=== PATIENT | female | born 1960 | race Caucasian/White ===

== ENCOUNTER → 2016-05-22 | Outpatient (CLI) | payer OTHER ==
[~2016-05-22] MED LIST: ASPI81TA28 PO; BIOT300T2 PO; INSUINJ4 SQ; LISI-789 PO; METFTAB PO; MINO1CAP25 PO; NVLGI SQ; OMEP40CA41 PO; RANI150T3 PO; SIMV10TA5 PO
--- NOTE | 2016-05-22 13:44 | DIAGNOSTIC IMAGING REPORT ---
RIGHT KNEE 3 VIEWS CLINICAL HISTORY: Fall with right knee pain. FINDINGS: AP, crosstable lateral, and sunrise views of the right knee are obtained. No prior studies are available for comparison at the time of dictation. The skeletal structures are well mineralized. No fracture is seen. There is mild tricompartmental degenerative joint space narrowing. There are patellar enthesophytes and small lateral marginal osteophytes. No joint effusion is identified. There is mild prepatellar soft tissue edema. IMPRESSION: 1. Prepatellar soft tissue swelling with no fracture identified in the right knee. 2. Mild degenerative change as above. Electronically signed by: Kalyan Mcdowell M.D. 05/22/2016 1:43 PM Dictated Date/Time: 05/22/2016 1:42 PM
--- NOTE | 2016-05-22 13:45 | DIAGNOSTIC IMAGING REPORT ---
LEFT KNEE 3 VIEWS CLINICAL HISTORY: Bilateral knee pain following fall. COMPARISON: None. FINDINGS: Alignment of the left knee is anatomic. There is no fracture or joint effusion. There is minimal joint space narrowing with osteophytosis of the left knee, most pronounced within the medial compartment. IMPRESSION: No acute fracture or joint effusion of the left knee. Electronically signed by: Naveed Angeles M.D. 05/22/2016 1:44 PM Dictated Date/Time: 05/22/2016 1:42 PM
--- NOTE | 2016-05-22 13:46 | DIAGNOSTIC IMAGING REPORT ---
PA CHEST WITH RIGHT-SIDED RIB SERIES CLINICAL HISTORY: Fall with right-sided chest wall pain. FINDINGS: A PA chest radiograph with 4 additional images from a right-sided rib series are obtained. No prior studies are available for comparison at the time of dictation. The cardiomediastinal silhouette is unremarkable. The lungs and pleural spaces are clear. No pneumothorax is seen. There is no radiographic evidence of acute/distracted right-sided rib fracture. The remainder of the bony thorax is grossly intact. Cholecystectomy clips are identified in the right upper quadrant. IMPRESSION: 1. The lungs are clear. 2. There are is no radiographic evidence of right-sided rib fracture as clinically queried. Electronically signed by: Kalyan Mcdowell M.D. 05/22/2016 1:45 PM Dictated Date/Time: 05/22/2016 1:43 PM
--- NOTE | 2016-05-22 13:46 | DIAGNOSTIC IMAGING REPORT ---
RIGHT HIP UNILATERAL 2 VIEWS CLINICAL HISTORY: Right hip pain following fall COMPARISON: None FINDINGS: Alignment of the right hip is anatomic. There is no acute fracture. Joint space is preserved. Mild irregularity along the greater trochanter is due to muscular insertion. IMPRESSION: No acute fracture or dislocation of the right hip. Electronically signed by: Naveed Angeles M.D. 05/22/2016 1:45 PM Dictated Date/Time: 05/22/2016 1:44 PM
== END | disposition home or self-care (01) ==
LOC: C.RAD1850 13:04
PROVIDERS: ATTEND Internal Medicine
DX: M25.559 Pain in unspecified hip (principal); M54.2 Cervicalgia; R07.89 Other chest pain

== ENCOUNTER → 2016-10-05 | Outpatient (CLI) | payer OTHER ==
[2016-10-05 12:24] LABS: ALT/SGPT 23 U/L (12-78); AST/SGOT 12 U/L (15-37); BLOOD UREA NITROGEN 12 mg/dl (7-18); BUN/CREATININE RATIO 19.5 (10-20); CALCIUM 8.6 mg/dl (8.5-10.1); CARBON DIOXIDE 28 mmol/L (21-32); CHLORIDE 107 mmol/L (98-107); CHOLESTEROL 183 mg/dl (0-200); GLUCOSE 152 mg/dl (70-99); POTASSIUM 3.7 mmol/L (3.5-5.1); SODIUM 142 mmol/L (136-145); TRIGLYCERIDES 212 mg/dl (0-150); VERY LOW DENSITY LIPOPROT CALC 42 mg/dl
[2016-10-05 12:25] LABS: ESTIMATED AVERAGE GLUCOSE 166 mg/dl; HA1C FLAG Normal (Normal)
[2016-10-05 12:26] LABS: CHOLESTEROL/HDL RATIO 3.4; HDL CHOLESTEROL 54 mg/dl; LDL CHOLESTEROL CALCULATED 87 mg/dl
[2016-10-05 12:55] LABS: RATIO 11.6 mcg/mg (0-30.0)
== END | disposition home or self-care (01) ==
LOC: C.LABPBG 08:11
PROVIDERS: ATTEND Internal Medicine
DX: E78.5 Hyperlipidemia, unspecified (principal); E11.65 Type 2 diabetes mellitus with hyperglycemia

== ENCOUNTER 2021-03-25 11:13 | Inpatient (IN) ==
--- NOTE | 2021-03-25 11:50 | Emergency Department Note ---
Impression & Plan Hypoxia, Shortness of breath, Hypothermia, Leukocytosis, DKA (diabetic ketoacidosis), Metabolic acidosis ED Provider Note NAME: BHARATH STEWART AGE: 60 SEX: F : 1960 ARRIVES VIA: Walk-In INFORMANT: Patient ED PROVIDER(S): Kevin Ramos DO CHIEF COMPLAINT: Nausea vomiting and shortness of breath HPI: Patient is a 60-year-old female who presents to the ER as she is very lethargic. History is difficult to obtain but was obtained from son. Patient has been having nausea, vomiting, for the past several days. She has not been keeping anything down. She tested positive for Covid about a week ago. She still has a cough and congestion and shortness of breath which she been complaining about. No reported fevers. History is otherwise limited. Patient just states that she is short of breath. She is able to get her name out. ROS: Review of systems limited secondary to mentation PAST MEDICAL HISTORY:See Below PAST SURGICAL HISTORY:See Below FAMILY HISTORY:See Below SOCIAL HISTORY:See Below HOME MEDICATIONS:See Below ALLERGIES:See Below VITALS:See Below PHYSICAL EXAMINATION: GENERAL: Sitting up in bed, alert, ill-appearing and lethargic/nearly obtunded EYE EXAM: normal conjunctiva. PERRL and EOM's grossly intact. OROPHARYNX: no exudate, no erythema, lips, buccal mucosa, and tongue normal and mucous membranes are moist NECK: supple, no nuchal rigidity, no adenopathy, non-tender LUNGS: Diminished bilaterally. Normal chest wall mechanics HEART: no murmurs, S1 normal and S2 normal ABDOMEN: abdomen soft, non-tender, normo-active bowel sounds, no masses, no rebound or guarding. UPPER EXTREMITIES: upper extremities are grossly normal. LOWER EXTREMITIES: No pitting edema. NEURO EXAM: Oriented to person but not able to answer any other questions. Moves upper extremities and lower extremities spontaneously. MEDICAL DECISION MAKING: Patient is a 60-year-old female who presents the ER nearly obtunded. IVs were established blood work was obtained. Labs show leukocytosis 18,000. Hemoglobin at 17 as I favor this likely contraction. pH was 6.8 CO2 was 5. BMP with a hyponatremia. CO2 of 7. Glucose was elevated at 500. Lactate was elevated 2.4. LFTs were unremarkable. Troponin was negative. Beta hydroxybutyric was elevated. Lipase at 800. UA was contaminated with multiple epithelial cells. Patient was Covid positive. CT abdomen pelvis showed no acute pathology. It did show a small infiltrates in the lungs. Patient was given IV cefepime as well as 3 L of IV fluids which were warm. She was placed on the warming blanket. Her mentation improved significantly while in the ER. Discussed with the pin sorter and bagger Dr. Francois. Patient was started on insulin drip and given a bolus while in the ER. This is just it while in the ER. Discussed with hospitalist Harinder Hunter patient was admitted for further work-up Triage Nursing notes reviewed. Limited review of prior medical records performed Vital Signs: reviewed and remarkable for HTN and tachy Differential diagnosis: Differential diagnoses includes but is not limited to pneumonia, bronchitis, COPD/Asthma exacerbation, pneumothorax, pulmonary embolism, congestive heart failure, acute coronary syndrome ER treatment provided: See below Diagnostics interpreted by me: ECG: Sinus rhythm rate of [address] segment elevations unchanged from previous QTC 495 Cardiac Monitoring: An order was placed for continuous cardiac monitoring. The monitor shows a rate of 92 with sinus rhythm. Laboratory studies: As stated above and show below. Imaging studies: Chest x-ray with subtle patchy infiltrates CT the abdomen pelvis showed no acute pathology Consultation(s): Discussed with the pin sorter and bagger and the hospitalist as discussed in the MDM Procedures: none Critical Care: I have personally spent 75 minutes of critical care time in the direct ma nagement of this patient. This includes bedside care, interpretation of diagnostic studies, and testing, discussion with consultants, patient, and family members, and other required patient management activities. This 75 minutes is in excess of all separately billable procedures. Past Med/Surg History Medical History (Updated 03/25/21 @ 18:21 by Kevin Ramos DO) Ankylosing spondylitis Asymmetrical hearing loss Carpal tunnel syndrome on both sides Eczema Generalized OA Hiatal hernia History of tobacco use Leukoplakia of oral cavity Lumbar canal stenosis Psoriasis Renal insufficiency Tendinitis of left rotator cuff Tendinitis of right rotator cuff Tendonitis of both shoulders Trigger thumb Trochanteric bursitis of left hip Surgical History H/O repair of right rotator cuff Hx of cholecystectomy Family History Grandmother (Maternal) Congestive heart failure (CHF) Diabetes Rheumatoid arthritis Myocardial infarction Mother Diabetes Myocardial infarction Grandfather (Maternal) Diabetes Myocardial infarction Denies family history of Ovarian cancer Prostate cancer Breast cancer Colorectal cancer Social History Smoking Status: Never smoker Tobacco Type: Cigarettes Number of Years Since Quit: 14; Second Hand Exposure: No; Hx Alcohol Use: No Hx Substance Use: No Preferred Language: [place] Communication Ability: Effective Professor Of Musicology Required: No Beliefs That Will Affect Care: None marital status: Current Living Situation: Spouse and Family Current Living Situation Comment: and Son current occupational status: unemployed 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 Feels Safe at Home: Yes Childhood Exposure to Second-Hand Smoke: No Dental Care, Regularly: No Physical Activity Frequency: Does not Exercise Seatbelt Use: always Sunscreen Use: No Assistive Devices: None Allergies Allergies Allergy/AdvReac Type Severity Reaction Status Date / Time Vagisil Yeast-Control SUPP Allergy Mild Redness of Uncoded 03/25/21 12:10 Skin Home Meds Home Medications Medication Instructions Recorded Confirmed flash glucose scanning reader #1 ea 09/08/20 02/25/21 (FreeStyle Jada 14 Day [place]) flash glucose sensor (FreeStyle #1 ea 09/08/20 02/25/21 Jada 14 Day Sensor) prednisone 5 mg tablet 5 mg PO DAILY tab 09/08/20 03/25/21 pen needle, diabetic 32 gauge x ea 01/21/21 02/25/21 532" (BD Ultra-Fine Elly Pen Needle) Previous Rx's Medication Instructions Recorded cholecalciferol (vitamin D3) 50 50 mcg PO DAILY #30 cap 08/20/19 mcg (2,000 unit) capsule metformin 500 mg tablet,extended 1,000 mg PO BID 90 Days #360 tab 04/23/20 release 24 hr omeprazole 40 mg capsule,delayed 40 mg PO DAILY #90 cap 09/17/20 release insulin aspart U-100 100 unit/mL See Rx Instructions SUBCUT BID #3 09/23/20 (3 mL) subcutaneous pen (Novolog box Flexpen U-100 Insulin aspart) insulin NPH-regular 70-30 U-100 See Rx Instructions SUBCUT 11/12/20 insulin 100 unit/mL subcutaneous .COMPLEX #2 box pen (Humulin 70/30 U-100 KwikPen) lisinopril 2.5 mg tablet 2.5 mg PO DAILY #90 tab 01/11/21 Levemir FlexTouch U-100 Insuln 100 100 unit SUBCUT DAILY 30 Days #30 01/28/21 unit/mL (3 mL) subcutaneous pen ml NS (insulin detemir U-100) OneTouch Verio test strips (blood #400 ea NS 03/09/21 sugar diagnostic) Results & Data (ED) Vital Signs Vital Signs - 24 hr 03/25/21 11:19 03/25/21 11:24 03/25/21 12:07 Temperature 33.8 C L Temperature Source Temporal Artery Scan Rectal Pulse Rate 101 H Pulse Rate from SpO2 Sensor Pulse Rhythm Regular Pulse Strength Normal Respiratory Rate 18 Respiratory Effort / Characteristics Non-Labored Spontaneous Respiratory Depth Normal Respiratory Pattern Regular Blood Pressure 160/79 H Blood Pressure Mean 106 Blood Pressure Position Sitting Pulse Oximetry 99 Oxygen Delivery Method Room Air Room Air Sepsis Recent Fever Within 48 Hours No Sepsis New/Unexplained Change in Mental Status N/A Sepsis Action Taken by Nursing No Action Required 03/25/21 12:08 03/25/21 12:11 03/25/21 12:30 Temperature Temperature Source Pulse Rate 96 H Pulse Rate from SpO2 Sensor 96 H Pulse Rhythm Pulse Strength Respiratory Rate 26 H Respiratory Effort / Characteristics Spontaneous Short of Breath Respiratory Depth Respiratory Pattern Tachypnea Blood Pressure 146/68 H Blood Pressure Mean 94 Blood Pressure Position Pulse Oximetry 99 99 Oxygen Delivery Method Room Air Room Air Room Air Sepsis Recent Fever Within 48 Hours Sepsis New/Unexplained Change in Mental Status Sepsis Action Taken by Nursing 03/25/21 12:45 03/25/21 13:00 03/25/21 13:15 Temperature Temperature Source Pulse Rate 95 H 94 H 103 H Pulse Rate from SpO2 Sensor 95 H 94 H 103 H Pulse Rhythm Pulse Strength Respiratory Rate 29 H 28 H 18 Respiratory Effort / Characteristics Respiratory Depth Respiratory Pattern Blood Pressure 141/73 H Blood Pressure Mean 95 Blood Pressure Position Pulse Oximetry 100 100 100 Oxygen Delivery Method Room Air Room Air Room Air Sepsis Recent Fever Within 48 Hours Sepsis New/Unexplained Change in Mental Status Sepsis Action Taken by Nursing 03/25/21 13:30 03/25/21 13:52 03/25/21 14:00 Temperature Temperature Source Pulse Rate 100 H 101 H 100 H Pulse Rate from SpO2 Sensor 101 H 100 H Pulse Rhythm Pulse Strength Respiratory Rate 22 32 H 22 Respiratory Effort / Characteristics Respiratory Depth Respiratory Pattern Blood Pressure 95/53 L 104/50 L 98/48 L Blood Pressure Mean 67 68 64 Blood Pressure Position Pulse Oximetry 100 100 Oxygen Delivery Method Room Air Room Air Sepsis Recent Fever Within 48 Hours Sepsis New/Unexplained Change in Mental Status Sepsis Action Taken by Nursing 03/25/21 14:15 03/25/21 14:30 Temperature 33 C L Temperature Source Pulse Rate 101 H 103 H Pulse Rate from SpO2 Sensor 101 H 103 H Pulse Rhythm Pulse Strength Respiratory Rate 24 30 H Respiratory Effort / Characteristics Respiratory Depth Respiratory Pattern Blood Pressure 103/50 L 113/61 Blood Pressure Mean 67 78 Blood Pressure Position Pulse Oximetry 100 100 Oxygen Delivery Method Room Air Room Air Sepsis Recent Fever Within 48 Hours Sepsis New/Unexplained Change in Mental Status Sepsis Action Taken by Nursing Laboratory Data Result diagrams: 03/25/21 12:15 03/25/21 15:40 Lab Results 03/25/21 03/25/21 03/25/21 Range/Units 12:10 12:15 12:15 WBC 18.10 H (4.8-10.8) K/uL RBC 5.73 H (4.2-5.4) M/uL Hgb 17.3 H (12.0-16.0) g/dL POC Hgb (12.0-16.0) g/dl Hct 49.0 H (37-47) % POC Hct (37-47) % MCV 85.5 (80-100) fL MCH 30.2 (25-34) pg MCHC 35.3 (32-36) g/dL RDW Std Deviation 39.9 (36.4-46.3) fL RDW Coeff of [place] 12.7 (11.5-14.5) % Plt Count 417 H (130-400) K/uL MPV 10.6 H (7.4-10.4) fL Immature Gran % (Auto) 1.7 % Neut % (Auto) 75.4 % Lymph % (Auto) 11.3 % [place] % (Auto) 11.4 % Eos % (Auto) 0.1 % Baso % (Auto) 0.1 % Neut # (Auto) 13.64 H (1.4-6.5) K/uL Lymph # (Auto) 2.05 (1.2-3.4) K/uL [place] # (Auto) 2.06 H (0.11-0.59) K/uL Eos # (Auto) 0.02 (0-0.5) K/uL Baso # (Auto) 0.02 (0-0.2) K/uL Immature Gran # (Auto) 0.31 H (0.00-0.02) K/uL VBG pH 6.87 L (7.36-7.41) VBG pCO2 28 L (38-50) mmHg VBG pO2 60 mmHg VBG HCO3 5 mmol/L VBG O2 Saturation 84.9 % VBG Base Excess -28.0 mEq/L Barometric Pressure 733.5 mm/Hg POC Sodium (135-144) mmol/L Sodium 119 L* (136-145) mmol/L POC Potassium (3.3-5.0) mmol/L Potassium 4.7 (3.5-5.1) mmol/L POC Chloride (101-112) mmol/L Chloride 88 L (98-107) mmol/L Carbon Dioxide 4 L* (21-32) mmol/L POC Total CO2 (24-31) mmol/L Anion Gap 27.0 H (3-11) POC Anion Gap (16-25) mmol/L POC BUN (7-18) mg/dl BUN 33 H (7-18) mg/dl Creatinine 1.22 H (0.6-1.2) mg/dl POC Creatinine (0.6-1.3) mg/dl Est Cr Clr Drug Dosing Not Reportable Est GFR ( Amer) 56.2 ml/min Est GFR (Non-Af Amer) 48.5 ml/min BUN/Creatinine Ratio 27.0 H (10-20) Glucose 556 H* (70-99) mg/dl POC Glucose (70-99) mg/dl POC Glucose (other) (70-99) mg/dl Estimat Average Glucose mg/dl Hemoglobin A1c (4.5-5.6) % Lactate (0.4-2.0) mmol/L Calcium 9.6 (8.5-10.1) mg/dl POC Ioniz Calcium Kindra (1.12-1.32) mmol/l Phosphorus (2.5-4.9) mg/dl Magnesium (1.8-2.4) mg/dl Total Bilirubin 0.6 (0.2-1) mg/dl AST 38 H (15-37) U/L ALT 46 (12-78) Alkaline Phosphatase 220 H D (45-117) U/L Troponin I < 0.015 (0-0.045) ng/ml Total Protein 9.1 H (6.4-8.2) gm/dl Albumin 3.4 (3.4-5.0) gm/dl Globulin 5.7 H (2.5-4.0) gm/dl Albumin/Globulin Ratio 0.6 L (0.9-2) Lipase 808 H (73-393) U/L Beta-Hydroxybutyric Acd Cancelled Urine Color Urine Appearance (Clear) Urine pH (4.5-7.5) Ur Specific [place] (1.000-1.030) Urine Protein (Negative) Urine Glucose (UA) (Negative) Urine Ketones (Negative) Urine Blood (Negative) Urine Nitrite (Negative) Urine Bilirubin (Negative) Urine Urobilinogen (Negative) Ur Leukocyte Esterase (Negative) Urine WBC (Auto) (0-5) /hpf Urine RBC (Auto) (0-4) /hpf U Hyaline Cast (Auto) (0-5) /lpf U Epithel Cells (Auto) (0-5) /lpf Urine Bacteria (Auto) (Negative) SARS-CoV-2 (PCR) (Negative) Influenza Type A (PCR) (Neg) Influenza Type B (PCR) (Neg) RSV (RT-PCR) (Neg) 03/25/21 03/25/21 03/25/21 Range/Units 12:15 12:15 12:15 WBC (4.8-10.8) K/uL RBC (4.2-5.4) M/uL Hgb (12.0-16.0) g/dL POC Hgb (12.0-16.0) g/dl Hct (37-47) % POC Hct (37-47) % MCV (80-100) fL MCH (25-34) pg MCHC (32-36) g/dL RDW Std Deviation (36.4-46.3) fL RDW Coeff of [place] (11.5-14.5) % Plt Count (130-400) K/uL MPV (7.4-10.4) fL Immature Gran % (Auto) % Neut % (Auto) % Lymph % (Auto) % [place] % (Auto) % Eos % (Auto) % Baso % (Auto) % Neut # (Auto) (1.4-6.5) K/uL Lymph # (Auto) (1.2-3.4) K/uL [place] # (Auto) (0.11-0.59) K/uL Eos # (Auto) (0-0.5) K/uL Baso # (Auto) (0-0.2) K/uL Immature Gran # (Auto) (0.00-0.02) K/uL VBG pH (7.36-7.41) VBG pCO2 (38-50) mmHg VBG pO2 mmHg VBG HCO3 mmol/L VBG O2 Saturation % VBG Base Excess mEq/L Barometric Pressure mm/Hg POC Sodium (135-144) mmol/L Sodium (136-145) mmol/L POC Potassium (3.3-5.0) mmol/L Potassium (3.5-5.1) mmol/L POC Chloride (101-112) mmol/L Chloride (98-107) mmol/L Carbon Dioxide (21-32) mmol/L POC Total CO2 (24-31) mmol/L Anion Gap (3-11) POC Anion Gap (16-25) mmol/L POC BUN (7-18) mg/dl BUN (7-18) mg/dl Creatinine (0.6-1.2) mg/dl POC Creatinine (0.6-1.3) mg/dl Est Cr Clr Drug Dosing Est GFR ( Amer) ml/min Est GFR (Non-Af Amer) ml/min BUN/Creatinine Ratio (10-20) Glucose (70-99) mg/dl POC Glucose (70-99) mg/dl POC Glucose (other) (70-99) mg/dl Estimat Average Glucose 335 mg/dl Hemoglobin A1c 13.3 H (4.5-5.6) % Lactate (0.4-2.0) mmol/L Calcium (8.5-10.1) mg/dl POC Ioniz Calcium Kindra (1.12-1.32) mmol/l Phosphorus 5.6 H (2.5-4.9) mg/dl Magnesium 2.7 H (1.8-2.4) mg/dl Total Bilirubin (0.2-1) mg/dl AST (15-37) U/L ALT (12-78) Alkaline Phosphatase (45-117) U/L Troponin I (0-0.045) ng/ml Total Protein (6.4-8.2) gm/dl Albumin (3.4-5.0) gm/dl Globulin (2.5-4.0) gm/dl Albumin/Globulin Ratio (0.9-2) Lipase (73-393) U/L Beta-Hydroxybutyric Acd 106.53 H Urine Color Urine Appearance (Clear) Urine pH (4.5-7.5) Ur Specific [place] (1.000-1.030) Urine Protein (Negative) Urine Glucose (UA) (Negative) Urine Ketones (Negative) Urine Blood (Negative) Urine Nitrite (Negative) Urine Bilirubin (Negative) Urine Urobilinogen (Negative) Ur Leukocyte Esterase (Negative) Urine WBC (Auto) (0-5) /hpf Urine RBC (Auto) (0-4) /hpf U Hyaline Cast (Auto) (0-5) /lpf U Epithel Cells (Auto) (0-5) /lpf Urine Bacteria (Auto) (Negative) SARS-CoV-2 (PCR) POSITIVE A* (Negative) Influenza Type A (PCR) Negative (Neg) Influenza Type B (PCR) Negative (Neg) RSV (RT-PCR) Negative (Neg) 03/25/21 03/25/21 03/25/21 Range/Units 12:15 12:24 13:10 WBC (4.8-10.8) K/uL RBC (4.2-5.4) M/uL Hgb (12.0-16.0) g/dL POC Hgb 19.4 H (12.0-16.0) g/dl Hct (37-47) % POC Hct 57 H (37-47) % MCV (80-100) fL MCH (25-34) pg MCHC (32-36) g/dL RDW Std Deviation (36.4-46.3) fL RDW Coeff of [place] (11.5-14.5) % Plt Count (130-400) K/uL MPV (7.4-10.4) fL Immature Gran % (Auto) % Neut % (Auto) % Lymph % (Auto) % [place] % (Auto) % Eos % (Auto) % Baso % (Auto) % Neut # (Auto) (1.4-6.5) K/uL Lymph # (Auto) (1.2-3.4) K/uL [place] # (Auto) (0.11-0.59) K/uL Eos # (Auto) (0-0.5) K/uL Baso # (Auto) (0-0.2) K/uL Immature Gran # (Auto) (0.00-0.02) K/uL VBG pH (7.36-7.41) VBG pCO2 (38-50) mmHg VBG pO2 mmHg VBG HCO3 mmol/L VBG O2 Saturation % VBG Base Excess mEq/L Barometric Pressure mm/Hg POC Sodium 121 L (135-144) mmol/L Sodium (136-145) mmol/L POC Potassium 4.7 (3.3-5.0) mmol/L Potassium (3.5-5.1) mmol/L POC Chloride 99 L (101-112) mmol/L Chloride (98-107) mmol/L Carbon Dioxide (21-32) mmol/L POC Total CO2 7 L* (24-31) mmol/L Anion Gap (3-11) POC Anion Gap 21.0 (16-25) mmol/L POC BUN 33 H (7-18) mg/dl BUN (7-18) mg/dl Creatinine (0.6-1.2) mg/dl POC Creatinine 0.7 (0.6-1.3) mg/dl Est Cr Clr Drug Dosing Est GFR ( Amer) ml/min Est GFR (Non-Af Amer) ml/min BUN/Creatinine Ratio (10-20) Glucose (70-99) mg/dl POC Glucose (70-99) mg/dl POC Glucose (other) 564 H* (70-99) mg/dl Estimat Average Glucose mg/dl Hemoglobin A1c (4.5-5.6) % Lactate 2.7 H* (0.4-2.0) mmol/L Calcium (8.5-10.1) mg/dl POC Ioniz Calcium Kindra 1.26 (1.12-1.32) mmol/l Phosphorus (2.5-4.9) mg/dl Magnesium (1.8-2.4) mg/dl Total Bilirubin (0.2-1) mg/dl AST (15-37) U/L ALT (12-78) Alkaline Phosphatase (45-117) U/L Troponin I (0-0.045) ng/ml Total Protein (6.4-8.2) gm/dl Albumin (3.4-5.0) gm/dl Globulin (2.5-4.0) gm/dl Albumin/Globulin Ratio (0.9-2) Lipase (73-393) U/L Beta-Hydroxybutyric Acd Urine Color Yellow Urine Appearance Clear (Clear) Urine pH 5.0 (4.5-7.5) Ur Specific [place] 1.023 (1.000-1.030) Urine Protein 2+ H (Negative) Urine Glucose (UA) 3+ H (Negative) Urine Ketones 4+ H (Negative) Urine Blood 2+ H (Negative) Urine Nitrite Negative (Negative) Urine Bilirubin Negative (Negative) Urine Urobilinogen Negative (Negative) Ur Leukocyte Esterase Negative (Negative) Urine WBC (Auto) 1-5 (0-5) /hpf Urine RBC (Auto) 5-10 H (0-4) /hpf U Hyaline Cast (Auto) 10-30 H (0-5) /lpf U Epithel Cells (Auto) >30 H (0-5) /lpf Urine Bacteria (Auto) Negative (Negative) SARS-CoV-2 (PCR) (Negative) Influenza Type A (PCR) (Neg) Influenza Type B (PCR) (Neg) RSV (RT-PCR) (Neg) 03/25/21 03/25/21 Range/Units 13:24 14:28 WBC (4.8-10.8) K/uL RBC (4.2-5.4) M/uL Hgb (12.0-16.0) g/dL POC Hgb (12.0-16.0) g/dl Hct (37-47) % POC Hct (37-47) % MCV (80-100) fL MCH (25-34) pg MCHC (32-36) g/dL RDW Std Deviation (36.4-46.3) fL RDW Coeff of [place] (11.5-14.5) % Plt Count (130-400) K/uL MPV (7.4-10.4) fL Immature Gran % (Auto) % Neut % (Auto) % Lymph % (Auto) % [place] % (Auto) % Eos % (Auto) % Baso % (Auto) % Neut # (Auto) (1.4-6.5) K/uL Lymph # (Auto) (1.2-3.4) K/uL [place] # (Auto) (0.11-0.59) K/uL Eos # (Auto) (0-0.5) K/uL Baso # (Auto) (0-0.2) K/uL Immature Gran # (Auto) (0.00-0.02) K/uL VBG pH (7.36-7.41) VBG pCO2 (38-50) mmHg VBG pO2 mmHg VBG HCO3 mmol/L VBG O2 Saturation % VBG Base Excess mEq/L Barometric Pressure mm/Hg POC Sodium (135-144) mmol/L Sodium (136-145) mmol/L POC Potassium (3.3-5.0) mmol/L Potassium (3.5-5.1) mmol/L POC Chloride (101-112) mmol/L Chloride (98-107) mmol/L Carbon Dioxide (21-32) mmol/L POC Total CO2 (24-31) mmol/L Anion Gap (3-11) POC Anion Gap (16-25) mmol/L POC BUN (7-18) mg/dl BUN (7-18) mg/dl Creatinine (0.6-1.2) mg/dl POC Creatinine (0.6-1.3) mg/dl Est Cr Clr Drug Dosing Est GFR ( Amer) ml/min Est GFR (Non-Af Amer) ml/min BUN/Creatinine Ratio (10-20) Glucose (70-99) mg/dl POC Glucose 496 H* 431 H* (70-99) mg/dl POC Glucose (other) (70-99) mg/dl Estimat Average Glucose mg/dl Hemoglobin A1c (4.5-5.6) % Lactate (0.4-2.0) mmol/L Calcium (8.5-10.1) mg/dl POC Ioniz Calcium Kindra (1.12-1.32) mmol/l Phosphorus (2.5-4.9) mg/dl Magnesium (1.8-2.4) mg/dl Total Bilirubin (0.2-1) mg/dl AST (15-37) U/L ALT (12-78) Alkaline Phosphatase (45-117) U/L Troponin I (0-0.045) ng/ml Total Protein (6.4-8.2) gm/dl Albumin (3.4-5.0) gm/dl Globulin (2.5-4.0) gm/dl Albumin/Globulin Ratio (0.9-2) Lipase (73-393) U/L Beta-Hydroxybutyric Acd Urine Color Urine Appearance (Clear) Urine pH (4.5-7.5) Ur Specific [place] (1.000-1.030) Urine Protein (Negative) Urine Glucose (UA) (Negative) Urine Ketones (Negative) Urine Blood (Negative) Urine Nitrite (Negative) Urine Bilirubin (Negative) Urine Urobilinogen (Negative) Ur Leukocyte Esterase (Negative) Urine WBC (Auto) (0-5) /hpf Urine RBC (Auto) (0-4) /hpf U Hyaline Cast (Auto) (0-5) /lpf U Epithel Cells (Auto) (0-5) /lpf Urine Bacteria (Auto) (Negative) SARS-CoV-2 (PCR) (Negative) Influenza Type A (PCR) (Neg) Influenza Type B (PCR) (Neg) RSV (RT-PCR) (Neg) Administered Medications Insulin Human Regular 250 (units/ Sodium Chloride) 250 mls @ 12.5 mls/hr IV .Q20H [facility]; Protocol Stop: 04/24/21 12:44 Last Titration: 03/25/21 17:30 Dose: 15 units/hr, 15 mls/hr Documented by: [id number] Cosigned by: [id number] Titration: 03/25/21 16:30 Dose: 15 units/hr, 15 mls/hr Documented by: [id number] Cosigned by: [id number] Titration: 03/25/21 15:40 Dose: 12.5 units/hr, 12.5 mls/hr Documented by: [id number] Cosigned by: [id number] Titration: 03/25/21 14:35 Dose: 8.9 units/hr, 8.9 mls/hr Documented by: [id number] Cosigned by: [id number] Admin: 03/25/21 13:27 Dose: 7.4 units/hr, 7.4 mls/hr Documented by: [id number] Cosigned by: [id number] Potassium Chloride 40 meq/ (Sodium Chloride) 1,020 mls @ 200 mls/hr IV .Q5H6M MARY Stop: 04/24/21 16:29 Last Admin: 03/25/21 16:59 Dose: 200 mls/hr Documented by: [id number] Potassium Chloride (K Logan / Wtr) 10 meq in 100 mls @ 100 mls/hr IV Q1H MARY Stop: 03/25/21 18:44 Last Admin: 03/25/21 18:06 Dose: 100 mls/hr Documented by: [id number] Insulin Aspart (Insulin Aspart Per Unit) 0 units SC ACHS MARY Stop: 04/24/21 16:29 Last Admin: 03/25/21 18:06 Dose: Not Given Documented by: [id number] Discontinued Medications Cefepime HCl (Maxipime) 2,000 mg in 20 mls @ 5 mls/min IV NOW STA; Protocol Stop: 03/25/21 12:35 Last Admin: 03/25/21 12:57 Dose: 5 mls/min Documented by: [id number] Parenteral Electrolytes (Normosol-R) 1,000 mls @ 999 mls/hr IV .Q1H1M ONE Stop: 03/25/21 13:32 Last Infusion: 03/25/21 14:36 Dose: 0 mls/hr Documented by: [id number] Admin: 03/25/21 12:57 Dose: 999 mls/hr Documented by: [id number] Parenteral Electrolytes (Normosol-R) 1,000 mls @ 999 mls/hr IV .Q1H1M ONE Stop: 03/25/21 13:32 Last Infusion: 03/25/21 14:36 Dose: 0 mls/hr Documented by: [id number] Admin: 03/25/21 13:28 Dose: 999 mls/hr Documented by: [id number] Potassium Chloride/Sodium Chloride (Normal Saline W/20 Meq Kcl) 20 meq in 1,000 mls @ 200 mls/hr IV .Q5H MARY Stop: 04/24/21 13:44 Last Infusion: 03/25/21 17:50 Dose: 0 mls/hr Documented by: [id number] Admin: 03/25/21 14:35 Dose: 100 mls/hr Documented by: [id number] Parenteral Electrolytes (Normosol-R) 1,000 mls @ 999 mls/hr IV .Q1H1M ONE Stop: 03/25/21 15:06 Last Infusion: 03/25/21 15:39 Dose: 0 mls/hr Documented by: [id number] Admin: 03/25/21 14:35 Dose: 999 mls/hr Documented by: [id number] Potassium Chloride (K Logan / Wtr) 10 meq in 100 mls @ 100 mls/hr IV Q1H MARY Stop: 03/25/21 16:29 Last Admin: 03/25/21 15:39 Dose: Not Given Documented by: [id number] Insulin Human Regular (Novolin-R Bolus From Bag) 7.4 units IV ONE ONE Stop: 03/25/21 12:46 Last Admin: 03/25/21 14:01 Dose: 7.4 units Documented by: [id number] Cosigned by: [id number] Miscellaneous (Dka Goal Range 150-250 Mg/Dl) 1 ea N/A ONE ONE Stop: 03/25/21 12:33 Last Admin: 03/25/21 15:39 Dose: 1 ea Documented by: [id number] Miscellaneous (Stat Iv Infusion Titration Per Protocol) 1 ea N/A NOW STA Stop: 03/25/21 14:34 Last Admin: 03/25/21 15:39 Dose: 1 ea Documented by: [id number] Miscellaneous (Stat Iv Infusion Titration Per Protocol) 1 ea N/A NOW STA Stop: 03/25/21 14:34 Last Admin: 03/25/21 15:39 Dose: 1 ea Documented by: [id number] Miscellaneous (Pending D5 1/2ns+20meq Kcl Ivf) 1 ea N/A Q2H MARY Stop: 04/24/21 15:32 Last Admin: 03/25/21 17:49 Dose: Not Given Documented by: [id number] Miscellaneous (Dka Goal Range 150-250 Mg/Dl) 1 ea N/A ONE ONE Stop: 03/25/21 15:34 Last Admin: 03/25/21 16:15 Dose: 1 ea Documented by: [id number] Sodium Bicarbonate (Sodium Bicarb 8.4% Inj 50 Meq/50 Ml Syr) 100 meq IV NOW STA Stop: 03/25/21 12:37 Last Admin: 03/25/21 12:58 Dose: 100 meq Documented by: [id number] Imaging Data Radiologist's Impression: Abdomen/Pelvis CT 03/25/21 11:45 CT abd pelvis wo con CLINICAL HISTORY: n/v TECHNIQUE: Helical axial images of the abdomen and pelvis were obtained. Automated dose lowering techniques and/or adjustment according to patient size were utilized for this exam. This exam was performed without intravenous contrast. COMPARISON: Comparison is made to CT abdomen pelvis 11/09/2020 FINDINGS: Lower chest: Multifocal consolidation is seen in the right lower lobe. Liver: Unremarkable. No focal lesions are seen. Gallbladder and biliary tree: Patient is status post cholecystectomy. No intra- or extrahepatic biliary ductal dilation. Pancreas: Unremarkable, no focal lesions. Spleen: Unremarkable. Adrenals: Unremarkable. Kidneys and ureters: 2.5 cm cyst is seen in the left kidney. Bladder: Jones catheter is seen. Reproductive organs: Unremarkable. Bowel: Unremarkable appearance of the bowel. The appendix is normal. Lymph nodes Retroperitoneal: Unremarkable. Mesenteric: Unremarkable. Pelvic: Unremarkable. Peritoneum: Normal Vessels: Unremarkable. Abdominal wall: Unremarkable. Bones: Unremarkable. IMPRESSION: No acute abnormalities and in particular there is no evidence of bowel obstruction. ACT 112: Negative or not required by law. Electronically signed by: Ti Matos M.D. 03/25/2021 2:06 PM Chest X-Ray 03/25/21 11:45 XR chest 1V portable HISTORY: 60 years-old Female Chest Pain acute atypical chest pain COMPARISON: CT abdomen and pelvis of same day, chest radiograph 08/09/2018 TECHNIQUE: Portable upright AP view of the chest FINDINGS: The cardiomediastinal and hilar silhouettes are within normal limits. Mild ill- defined airspace opacities of the right midlung and right lung base. No pneumothorax, pleural effusion, airspace consolidation or overt pulmonary edema. No acute fracture. Battery pack of the left chest wall. IMPRESSION: Airspace opacities of the right lung are suggestive of viral pneumo evelia. ACT 112: Negative or not required by law. The above report was generated using voice recognition software. It may contain grammatical, syntax or spelling errors. Electronically signed by: Russell Cardona M.D. 03/25/2021 2:16 PM Discharge Plan Visit Data Chief Complaint: Shortness of Breath/Dyspnea Stated Complaint: TROUBLE BREATHING,VOMITING,MOBILITY ISSUES ED Provider: Kevin Ramos Discharge Problem: Hypoxia, Shortness of breath, Hypothermia, Leukocytosis, DKA (diabetic ketoacidosis), Metabolic acidosis Patient Disposition: Admitted As Inpatient Discharge Instructions Interventions: ED Discharge Assessment Last Done: 03/25/21 15:10 Discharge Problem: Hypothermia Qualifiers: Encounter type: initial encounter Qualified Code(s): T68.XXXA - Hypothermia, initial encounter Leukocytosis Qualifiers: Leukocytosis type: unspecified Qualified Code(s): D72.829 - Elevated white blood cell count, unspecified DKA (diabetic ketoacidosis) Qualifiers: Diabetes mellitus type: other specified (including ROHAN) Diabetes mellitus complication detail: without coma Qualified Code(s): E13.10 - Other specified diabetes mellitus with ketoacidosis without coma
[2021-03-25 12:25] LABS: Hemoglobin 17.3 g/dL (12.0-16.0); Mean Corpuscular Hemoglobin 30.2 pg (25-34); Mean Corpuscular Hgb Conc 35.3 g/dL (32-36); Mean Corpuscular Volume 85.5 fL (80-100); Mean Platelet Volume 10.6 fL (7.4-10.4); Platelet Count 417 K/uL (130-400); RDW Coefficient of Variation 12.7 % (11.5-14.5); RDW Standard Deviation 39.9 fL (36.4-46.3); Red Blood Count 5.73 M/uL (4.2-5.4)
[2021-03-25 12:29] LABS: Oxygen Saturation VBG 84.9 %; pH VBG 6.87 (7.36-7.41)
[2021-03-25] MEDS ORDERED: GLUCOSE 10 TABS/TUBE PO PRN (12:32)
[2021-03-25] MEDS ORDERED: DKA GOAL RANGE 150-250 mg/dl ONE ×2 (12:32→15:33)
[2021-03-25] MEDS ORDERED: CEFEPIME 2,000 MG/20 ML VIAL IV STA (12:32)
[2021-03-25] MEDS ORDERED: NORMOSOL-R 1,000 ML IV ONE ×3 (12:32→14:06)
[2021-03-25] MEDS ORDERED: GLUCOSE 40% GEL 15 GM TUBE PO PRN (12:32)
[2021-03-25] MEDS ORDERED: STAT IV Infusion **Titration per Protocol STA ×3 (12:32→14:33)
[2021-03-25] MEDS ORDERED: GLUCAGON FOR INJ 1 MG VIAL SQ PRN (12:32)
[2021-03-25] MEDS ORDERED: CARBOHYDRATES FOR HYPOGLYCEMIA PO PRN (12:32)
[2021-03-25] MEDS ORDERED: SODIUM BICARB 8.4% INJ 50 MEQ/50 ML SYR IV STA (12:36)
[2021-03-25 12:43] LABS: iSTAT Creatinine 0.7 mg/dl (0.6-1.3); iSTAT Hemoglobin 19.4 g/dl (12.0-16.0); iSTAT Ionized Calcium 1.26 mmol/l (1.12-1.32); iSTAT Potassium 4.7 mmol/L (3.3-5.0)
[2021-03-25 12:45] LABS: Basophils # (auto) 0.02 K/uL (0-0.2); Basophils % (auto) 0.1 %; Eosinophils # (auto) 0.02 K/uL (0-0.5); Eosinophils % (auto) 0.1 %; Immature Granulocytes # (auto) 0.31 K/uL (0.00-0.02); Immature Granulocytes % (auto) 1.7 %; Lymphocytes # (auto) 2.05 K/uL (1.2-3.4); Lymphocytes % (auto) 11.3 %; Monocytes # (auto) 2.06 K/uL (0.11-0.59); Monocytes % (auto) 11.4 %; Neutrophils # (auto) 13.64 K/uL (1.4-6.5); Neutrophils % (auto) 75.4 %
[2021-03-25] MEDS ORDERED: NovoLIN-R BOLUS FROM BAG IV ONE (12:45)
[2021-03-25 12:54] LABS: Alanine Aminotransferase 46 (12-78); Albumin Globulin Ratio 0.6 (0.9-2); Albumin Level 3.4 gm/dl (3.4-5.0); Alkaline Phosphatase 220 U/L (45-117); Aspartate Aminotransferase 38 U/L (15-37); Bilirubin,Total 0.6 mg/dl (0.2-1); Blood Urea Nitrogen 33 mg/dl (7-18); Calcium 9.6 mg/dl (8.5-10.1); Carbon Dioxide 4 mmol/L (21-32); Chloride 88 mmol/L (98-107); Est GFR (African American) 56.2 ml/min; Est GFR (Non-African American) 48.5 ml/min; Globulin 5.7 gm/dl (2.5-4.0); Glucose 556 mg/dl (70-99); Lipase 808 U/L (73-393); Potassium 4.7 mmol/L (3.5-5.1); Sodium 119 mmol/L (136-145); Total Protein 9.1 gm/dl (6.4-8.2); Troponin I < 0.015 ng/ml (0-0.045)
[2021-03-25 13:11] LABS: Influenza A virus by PCR Negative (Neg); Influenza B virus by PCR Negative (Neg); RSV by PCR Negative (Neg)
[2021-03-25 13:22] LABS: Appearance Urine Clear (Clear); Bacteria Urine Automated Negative (Negative); Bilirubin Urine Negative (Negative); Blood Urine 2+ (Negative); Color Urine Yellow; Epithelial Cell Urine Auto >30 /lpf (0-5); Glucose Urine UA 3+ (Negative); Ketones Urine 4+ (Negative); Leukocyte Esterase Urine Negative (Negative); Nitrite Urine Negative (Negative); Protein Urine 2+ (Negative); Specific Gravity Urine 1.023 (1.000-1.030); Urobilinogen Urine Negative (Negative)
[2021-03-25 13:24] LABS: SARS CoV2 RNA(COVID-19) InHosp POSITIVE (Negative)
[2021-03-25] MEDS: INSULIN REGULAR 250 UNITS in SODIUM CHLORIDE 0.9% 247.5 ML IV SCH (13:27)
[2021-03-25 13:35] LABS: Magnesium 2.7 mg/dl (1.8-2.4); Phosphorus 5.6 mg/dl (2.5-4.9)
[2021-03-25] MEDS ORDERED: NSS + 20MEQ KCL 20 MEQ/1,000 ML BAG IV SCH (13:45)
[2021-03-25 14:03] LABS: Beta-Hydroxybutyrate 106.53 mg/dl (0.2-2.81)
--- NOTE | 2021-03-25 14:07 | CT Scan Report ---
CT abd pelvis wo con CLINICAL HISTORY: n/v TECHNIQUE: Helical axial images of the abdomen and pelvis were obtained. Automated dose lowering tech niques and/or adjustment according to patient size were utilized for this exam. This exam was perfor med without intravenous contrast. COMPARISON: Comparison is made to CT abdomen pelvis 11/09/2020 FINDINGS: Lower chest: Multifocal consolidation is seen in the right lower lobe. Liver: Unremarkable. No focal lesions are seen. Gallbladder and biliary tree: Patient is status post cholecystectomy. No intra- or extrahepatic bilia ry ductal dilation. Pancreas: Unremarkable, no focal lesions. Spleen: Unremarkable. Adrenals: Unremarkable. Kidneys and ureters: 2.5 cm cyst is seen in the left kidney. Bladder: Jones catheter is seen. Reproductive organs: Unremarkable. Bowel: Unremarkable appearance of the bowel. The appendix is normal. Lymph nodes Retroperitoneal: Unremarkable. Mesenteric: Unremarkable. Pelvic: Unremarkable. Peritoneum: Normal Vessels: Unremarkable. Abdominal wall: Unremarkable. Bones: Unremarkable. IMPRESSION: No acute abnormalities and in particular there is no evidence of bowel obstruction. ACT 112: Negative or not required by law. Electronically signed by: Ti Matos M.D. 03/25/2021 2:06 PM
[2021-03-25 14:11] LABS: Estimated Average Glucose 335 mg/dl; Hemoglobin A1C 13.3 % (4.5-5.6)
--- NOTE | 2021-03-25 14:17 | XRay Report ---
XR chest 1V portable HISTORY: 60 years-old Female Chest Pain acute atypical chest pain COMPARISON: CT abdomen and pelvis of same day, chest radiograph 08/09/2018 TECHNIQUE: Portable upright AP view of the chest FINDINGS: The cardiomediastinal and hilar silhouettes are within normal limits. Mild ill-defined airspace opaci ties of the right midlung and right lung base. No pneumothorax, pleural effusion, airspace consolidat ion or overt pulmonary edema. No acute fracture. Battery pack of the left chest wall. IMPRESSION: Airspace opacities of the right lung are suggestive of viral pneumonia. ACT 112: Negative or not required by law. The above report was generated using voice recognition software. It may contain grammatical, syntax o r spelling errors. Electronically signed by: Russell Cardona M.D. 03/25/2021 2:16 PM
[2021-03-25] MEDS ORDERED: POTASSIUM CHLORIDE / WTR 10 MEQ/100 ML PLCT IV SCH (14:30)
--- NOTE | 2021-03-25 15:06 | History & Physical Report ---
Date of Service March 25, 2021 History of Present Illness Primary Care Provider: Car Fox MD Allergies Allergy/AdvReac Type Severity Reaction Status Date / Time Vagisil Yeast-Control SUPP Allergy Mild Redness of Uncoded 03/25/21 12:10 Skin Home Medications Medication Instructions Recorded Confirmed Type cholecalciferol (vitamin D3) 50 50 mcg PO DAILY #30 cap 08/20/19 03/25/21 Rx mcg (2,000 unit) capsule metformin 500 mg tablet,extended 1,000 mg PO BID 90 Days #360 tab 04/23/20 03/25/21 Rx release 24 hr flash glucose scanning reader #1 ea 09/08/20 02/25/21 History (FreeStyle Jada 14 Day [place]) flash glucose sensor (FreeStyle #1 ea 09/08/20 02/25/21 History Jada 14 Day Sensor) prednisone 5 mg tablet 5 mg PO DAILY tab 09/08/20 03/25/21 History omeprazole 40 mg capsule,delayed 40 mg PO DAILY #90 cap 09/17/20 03/25/21 Rx release insulin aspart U-100 100 unit/mL See Rx Instructions SUBCUT BID #3 09/23/20 03/25/21 Rx (3 mL) subcutaneous pen (Novolog box Flexpen U-100 Insulin aspart) insulin NPH-regular 70-30 U-100 See Rx Instructions SUBCUT 11/12/20 03/25/21 Rx insulin 100 unit/mL subcutaneous .COMPLEX #2 box pen (Humulin 70/30 U-100 KwikPen) lisinopril 2.5 mg tablet 2.5 mg PO DAILY #90 tab 01/11/21 03/25/21 Rx pen needle, diabetic 32 gauge x ea 01/21/21 02/25/21 History 5/32" (BD Ultra-Fine Elly Pen Needle) Levemir FlexTouch U-100 Insuln 100 100 unit SUBCUT DAILY 30 Days #30 01/28/21 03/25/21 Rx unit/mL (3 mL) subcutaneous pen ml NS (insulin detemir U-100) OneTouch Verio test strips (blood #400 ea NS 03/09/21 Rx sugar diagnostic) Past Med/Surg History Medical History Ankylosing spondylitis Asymmetrical hearing loss Carpal tunnel syndrome on both sides Eczema Generalized OA Hiatal hernia Leukoplakia of oral cavity Lumbar canal stenosis Psoriasis Renal insufficiency Tendinitis of left rotator cuff Tendinitis of right rotator cuff Tendonitis of both shoulders Trigger thumb Trochanteric bursitis of left hip Surgical History H/O repair of right rotator cuff Hx of cholecystectomy Family History Grandmother (Maternal) Congestive heart failure (CHF) Diabetes Rheumatoid arthritis Myocardial infarction Mother Diabetes Myocardial infarction Grandfather (Maternal) Diabetes Myocardial infarction Denies family history of Ovarian cancer Prostate cancer Breast cancer Colorectal cancer Social History Smoking Status: Former smoker Tobacco Type: Cigarettes Number of Years Since Quit: 14; Second Hand Exposure: Yes; Hx Alcohol Use: No Hx Substance Use: No marital status: Current Living Situation: Family current occupational status: unemployed 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 Feels Safe at Home: Yes Childhood Exposure to Second-Hand Smoke: No Dental Care, Regularly: No Physical Activity Frequency: Does not Exercise Seatbelt Use: always Sunscreen Use: No Results & Data Results & Data ([facility]) Vital Signs (Past 12 Hours) Vital Signs Temp Pulse Resp BP Pulse Ox 03/25/21 14:45 103 H 31 H 121/70 100 03/25/21 14:30 103 H 30 H 113/61 100 03/25/21 14:15 33 C L 101 H 24 103/50 L 100 03/25/21 14:00 100 H 22 98/48 L 100 03/25/21 13:52 101 H 32 H 104/50 L 100 03/25/21 13:30 100 H 22 95/53 L 03/25/21 13:15 103 H 18 100 03/25/21 13:00 94 H 28 H 141/73 H 100 03/25/21 12:45 95 H 29 H 100 03/25/21 12:30 96 H 26 H 146/68 H 99 03/25/21 12:08 99 03/25/21 12:07 33.8 C L 03/25/21 11:19 101 H 18 160/79 H 99 Code Status & VTE Plan VTE Prophylaxis Plan VTE Prophylaxis will be ordered: Yes PG Care Time/CCT Total # of Minutes Spent Total Time Spent with Patient: Total time spent is greater than 50% in coordination of care (as documented) at patient's floor/unit and/or counseling patient: Coding
--- NOTE | 2021-03-25 15:17 | Electrocardiogram Report ---
Test Reason : Blood Pressure : / mmHG Vent. Rate : 097 BPM Atrial Rate : 097 BPM P-R Int : 170 ms QRS Dur : 104 ms QT Int : 390 ms P-R-T Axes : 067 057 066 degrees QTc Int : 495 ms Normal sinus rhythm Prolonged QT Abnormal ECG When compared with ECG of 16-OCT-2013 11:41, QRS duration has increased QT has lengthened Confirmed by Car Edouard ([id number]) on 03/25/2021 3:17:07 PM Referred By: REFERRED SELF Confirmed By:Car Edouard
--- NOTE | 2021-03-25 15:23 | History & Physical Report ---
Date of Service March 25, 2021 Assessment & Plan (1) Diabetic ketoacidosis associated with type 2 diabetes mellitus: Plan: Venous pH 6.87 on admission. Sodium bicarb 100 mEq IV appropriately given by ER. Repeat venous ph pending, hold further bicarb if > 7.0. 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 Continue on home dose 5mg PO daily. (4) COVID-19: Plan: Unvaccinated O2 sats 100% on room air. No current treatment required (5) History of tobacco use: (6) Hypothermia: Plan: Rewarming per ICU management No source of infection identified. No need for ongoing antibiotics. (7) Acute hyponatremia: Plan: Corrected for glucose on admission 130 therefore should mostly correct with treatment of hyperglycemia. Fluid managed deferred to ICU (8) Altered mental status: Plan: Much improved since arriving at the ER Plan: VTE Prophylaxis - deferred to ICU Diet - NPO Disposition - admit to COVID isolation in ICU Admission and Anticipated Discharge Date Admission Date: March 25, 2021 History of Present Illness Chief Complaint: Altered mental status, shortness of breath Primary Care Provider: Car Fox MD Maura Pickard is a 60-year-old female who presents to the ER with shortness of breath, chills, nausea and vomiting starting 4 days ago. She has a significant history of poorly controlled diabetes with HbA1c 12.8 in September this year. She reports compliance with her medications. She is unvaccinated for COVID-19 and tested positive for this 1 week ago. In the ER she was noted to be in diabetic ketoacidosis with a venous pH of 6.87, sodium 119, anion gap 27, POLO with creatinine 1.22 from baseline of 0.63, SARS-CoV-2 PCR positive, chest x-ray concerning for right lung airspace opacities suggestive of viral pneumonia. She was given 3 L Normosol bolus and started on DKA protocol insulin IV drip. Sodium bicarbonate 100 mEq IV given due to pH < 6.9. She is referred to medicine for admission ongoing management of diabetic ketoacidosis. Allergies Allergy/AdvReac Type Severity Reaction Status Date / Time Vagisil Yeast-Control SUPP Allergy Mild Redness of Uncoded 03/25/21 12:10 Skin Home Medications Medication Instructions Recorded Confirmed Type cholecalciferol (vitamin D3) 50 50 mcg PO DAILY #30 cap 08/20/19 03/25/21 Rx mcg (2,000 unit) capsule metformin 500 mg tablet,extended 1,000 mg PO BID 90 Days #360 tab 04/23/20 03/25/21 Rx release 24 hr flash glucose scanning reader #1 ea 09/08/20 02/25/21 History (FreeStyle Jada 14 Day [place]) flash glucose sensor (FreeStyle #1 ea 09/08/20 02/25/21 History Jada 14 Day Sensor) prednisone 5 mg tablet 5 mg PO DAILY tab 09/08/20 03/25/21 History omeprazole 40 mg capsule,delayed 40 mg PO DAILY #90 cap 09/17/20 03/25/21 Rx release insulin aspart U-100 100 unit/mL See Rx Instructions SUBCUT BID #3 09/23/20 03/25/21 Rx (3 mL) subcutaneous pen (Novolog box Flexpen U-100 Insulin aspart) insulin NPH-regular 70-30 U-100 See Rx Instructions SUBCUT 11/12/20 03/25/21 Rx insulin 100 unit/mL subcutaneous .COMPLEX #2 box pen (Humulin 70/30 U-100 KwikPen) lisinopril 2.5 mg tablet 2.5 mg PO DAILY #90 tab 01/11/21 03/25/21 Rx pen needle, diabetic 32 gauge x ea 01/21/21 02/25/21 History 5/32" (BD Ultra-Fine Elly Pen Needle) Levemir FlexTouch U-100 Insuln 100 100 unit SUBCUT DAILY 30 Days #30 01/28/21 03/25/21 Rx unit/mL (3 mL) subcutaneous pen ml NS (insulin detemir U-100) OneTouch Verio test strips (blood #400 ea NS 03/09/21 Rx sugar diagnostic) Past Med/Surg History Medical History (Updated 03/25/21 @ 18:21 by Kevin Ramos DO) Ankylosing spondylitis Asymmetrical hearing loss Carpal tunnel syndrome on both sides Eczema Generalized OA Hiatal hernia History of tobacco use Leukoplakia of oral cavity Lumbar canal stenosis Psoriasis Renal insufficiency Tendinitis of left rotator cuff Tendinitis of right rotator cuff Tendonitis of both shoulders Trigger thumb Trochanteric bursitis of left hip Surgical History H/O repair of right rotator cuff Hx of cholecystectomy Family History Grandmother (Maternal) Congestive heart failure (CHF) Diabetes Rheumatoid arthritis Myocardial infarction Mother Diabetes Myocardial infarction Grandfather (Maternal) Diabetes Myocardial infarction Denies family history of Ovarian cancer Prostate cancer Breast cancer Colorectal cancer Social History Smoking Status: Never smoker Tobacco Type: Cigarettes Number of Years Since Quit: 14; Second Hand Exposure: No; Hx Alcohol Use: No Hx Substance Use: No Preferred Language: [place]i Communication Ability: Effective Metal Bed Assembler Required: No Beliefs That Will Affect Care: None marital status: Current Living Situation: Spouse and Family Current Living Situation Comment: and Son current occupational status: unemployed 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 Feels Safe at Home: Yes Childhood Exposure to Second-Hand Smoke: No Dental Care, Regularly: No Physical Activity Frequency: Does not Exercise Seatbelt Use: always Sunscreen Use: No Assistive Devices: None Physical Exam Constitutional: + ill appearing; no acute distress Eyes: + anicteric sclerae; normal pupil size Respiratory: normal respiratory effort, lungs clear to auscultation Cardiovascular: Rate/Rhythm: regular rhythm and + tachycardic Heart Sounds: no murmur Extremities: + abnormal capillary refill, no calf tenderness and no pedal edema Gastrointestinal (Abdomen): normal bowel sounds, soft, nontender, no hepatosplenomegaly Musculoskeletal: Extremities: + cyanosis (peripheral) Skin: no rashes, warm and dry Neurologic: moves all extremities and awake; not confused Psychiatric: Orientation: alert and oriented x 3 Results & Data Results & Data ([facility]) Vital Signs (Past 12 Hours) Vital Signs Temp Pulse Resp BP Pulse Ox 03/25/21 14:45 103 H 31 H 121/70 100 03/25/21 14:30 103 H 30 H 113/61 100 03/25/21 14:15 33 C L 101 H 24 103/50 L 100 03/25/21 14:00 100 H 22 98/48 L 100 03/25/21 13:52 101 H 32 H 104/50 L 100 03/25/21 13:30 100 H 22 95/53 L 03/25/21 13:15 103 H 18 100 03/25/21 13:00 94 H 28 H 141/73 H 100 03/25/21 12:45 95 H 29 H 100 03/25/21 12:30 96 H 26 H 146/68 H 99 03/25/21 12:08 99 03/25/21 12:07 33.8 C L 03/25/21 11:19 101 H 18 160/79 H 99 Diagnostic Findings XR chest 1V portable HISTORY: 60 years-old Female Chest Pain acute atypical chest pain COMPARISON: CT abdomen and pelvis of same day, chest radiograph 08/09/2018 TECHNIQUE: Portable upright AP view of the chest FINDINGS: The cardiomediastinal and hilar silhouettes are within normal limits. Mild ill- defined airspace opacities of the right midlung and right lung base. No pneumothorax, pleural effusion, airspace consolidation or overt pulmonary edema. No acute fracture. Battery pack of the left chest wall. IMPRESSION: Airspace opacities of the right lung are suggestive of viral pneumonia. CT abd pelvis wo con CLINICAL HISTORY: n/v TECHNIQUE: Helical axial images of the abdomen and pelvis were obtained. Automated dose lowering techniques and/or adjustment according to patient size were utilized for this exam. This exam was performed without intravenous contrast. COMPARISON: Comparison is made to CT abdomen pelvis 11/09/2020 FINDINGS: Lower chest: Multifocal consolidation is seen in the right lower lobe. Liver: Unremarkable. No focal lesions are seen. Gallbladder and biliary tree: Patient is status post cholecystectomy. No intra- or extrahepatic biliary ductal dilation. Pancreas: Unremarkable, no focal lesions. Spleen: Unremarkable. Adrenals: Unremarkable. Kidneys and ureters: 2.5 cm cyst is seen in the left kidney. Bladder: Jones catheter is seen. Reproductive organs: Unremarkable. Bowel: Unremarkable appearance of the bowel. The appendix is normal. Lymph nodes Retroperitoneal: Unremarkable. Mesenteric: Unremarkable. Pelvic: Unremarkable. Peritoneum: Normal Vessels: Unremarkable. Abdominal wall: Unremarkable. Bones: Unremarkable. IMPRESSION: No acute abnormalities and in particular there is no evidence of bowel obstruction. Medications Administered ER Medications Given: Cefepime 2g IV Normosol 3L bolus Sodium bicarb 100 meq IV Insulin 7.4 unit bolus then start on drip KCl 20 meq / NSS @ 200ml/hr ECG Indication: altered mental status Rate (beats per minute): 97 Rhythm: normal sinus Findings: + prolonged QT (495) Comparison ECG Date: from (October 16, 2013) Change: the following changes noted (QT has lengthened) Code Status & VTE Plan Code Status Full VTE Prophylaxis Plan VTE Prophylaxis will be ordered: Yes PG Care Time/CCT Total # of Minutes Spent Total Time Spent with Patient: Total time spent is greater than 50% in coordination of care (as documented) at patient's floor/unit and/or counseling patient: Coding Level of Care Code 74007 Initial Inpt Care Lvl 3 Diagnoses Uncontrolled type 2 diabetes mellitus with hyperglycemia, with long-term current use of insulin E11.65; Z79.4 FDC (current) use of systemic steroids Z79.52 Diabetic ketoacidosis associated with type 2 diabetes mellitus E11.10 COVID-19 U07.1 History of tobacco use Z87.891 Hypothermia T68.XXXA Acute hyponatremia E87.1 Altered mental status R41.82
[2021-03-25] MEDS ORDERED: ICU PROTOCOL FOR HYPERGLYCEMIA PRN (15:33)
[2021-03-25] MEDS ORDERED: INSULIN REGULAR 250 UNITS in SODIUM CHLORIDE 0.9% 247.5 ML IV SCH (15:33)
[2021-03-25] MEDS ORDERED: PENDING D5 1/2NS+20mEq KCL IVF SCH (15:33)
[2021-03-25] MEDS ORDERED: PENDING 1/2NSS+20mEq KCL IVF SCH (15:33)
--- NOTE | 2021-03-25 15:54 | Critical Care Consultation ---
Date of Consultation March 25, 2021 Assessment & Plan (1) Uncontrolled type 2 diabetes mellitus with hyperglycemia, with long-term current use of insulin: (2) retirement (current) use of systemic steroids: (3) Diabetic ketoacidosis associated with type 2 diabetes mellitus: (4) COVID-19: (5) History of tobacco use: (6) Hypothermia: (7) Acute hyponatremia: (8) Altered mental status: Attending: Dr. Francois Impression: There is a 60-year-old female that began with shortness of breath and chills approximately 4 days ago. She also had associated nausea and vomiting for 4 days. She presented to the emergency department with abdominal pain and was found to have COVID-19 as well as DKA. Patient had altered mental status on admission. She was found to have a sodium level of 119. She received 2 L of normal salt and is on the third liter of fluid which is comprised of n ormal saline solution with 20 mEq potassium chloride at 100 mL/h. She was also started on an insulin drip. She was found to be hypothermic at 33 C and started on warming with a bear hugger. She currently is responsive and following commands. She is alert and oriented x3. She appears ill. Reason Critically Ill: DKA, COVID-19 Neuro - [facility] ICU: Patient alert and oriented x3. Hyponatremic and acidotic on admission.Imaging of the brain completed. Cardiac - Patient with a history of hypertension and currently on lisinopril 2.5 mg p.o. at home. No other antihypertensives reported Currently patient is hemodynamically stable No record of echocardiogram in the past. EKG today with prolonged QTC at 495 ms. Normal sinus rhythm on EKG and on telemetry. Respiratory - Patient positive by serology with SIRS-COV-2/COVID-19 Chest x-ray with some right lower lobe opacification consistent with viral illness SaO2 100% on room air No respiratory distress No use of accessory muscles COVID-19 * SaO2 at 100% on room air * Continue home dose of prednisone 5mg PO but do not stress dose or give dexame thasone due to DKA/Hyperglycemia * Out of the window for remdesivir * No role for monoclonal antibodies * Continue negative pressure isolation * Check CRP and procalcitonin GI - Nausea and vomiting at home times last 4 days Currently nausea is controlled and patient denies any vomiting today Patient does have GERD and is chronically on omeprazole 40 mg p.o. daily Lipase is elevated at 808 * Trend values * CT a/p with no intra- or extrahepatic biliary ductal dilation. No bowel obstruction. * No evidence of lesions or masses within the pancreas RENAL/LYTES - Creatinine is slightly elevated at 1.22. Baseline appears to be 0.63 - 0.8 Anion gap is 21. This is secondary to diabetic ketoacidosis Patient currently on insulin drip. Obtain labs every 4 hours x6 Continue IV fluids at half-normal saline with 20 mEq potassium chloride. Also consider potassium riders once stat labs are returned. Follow serial labs - Patient will need Jones catheter to gravity for strict I's and O's ENDO - Poorly controlled diabetes mellitus type 2 Hemoglobin A1c is 13.3 Hold outpatient insulin Continue insulin drip Follow anion gap No history of hypothyroidism. Last TSH was 1.59 on 10/13/2019 HEME - No active bleeding. Hemoglobin hemoconcentrated currently 17.3 g/Selvin Follow serial labs as patient will need anticoagulation for COVID-19 infection ID - Lactic acid 2.7. This most likely secondary to DKA Patient apparently started on cefepime We will panculture the patient Currently hypothermic but normotensive LINES/IV ACCESS - Peripheral IV x3 No indication for central line at this time but will monitor closely IVF - Received 2 L of normal soft in the emergency department Currently receiving a third liter of normal saline with 20 mEq of potassium chloride at 200 mL/h We will convert to D5 normal saline with 20 mEq potassium chloride at 200 mL/h Stat BMP is pending Following that we will continue with labs every 4 hours X 6 DVT PROPHYLAXIS - We will start patient on enoxaparin CODE STATUS Discussed with patient. She wishes to be full resuscitation -level I CCT: 70 minutes independent of any procedures Thank you for including us in the care of this patient. Please refer to Dr. Francois's addendum for further recommendations. History of Present Illness Reason for Consultation: Critically Ill with DKA and with COVID Requesting Physician: Dr. Hunter History of Present Illness Attending: Dr. Francois This is a 60-year-old female that has a past medical history including poorly controlled diabetes mellitus type 2 on long-term insulin, diabetic retinopathy, long-term use of systemic steroids, hyperlipidemia, hypertension, psoriatic arthritis, seronegative spondyloarthropathy, paresthesia of both hands, lumbar canal stenosis, GERD, biliary dyskinesia, obesity, past tobacco abuse history with [id number] history. The patient presents to the emergency department with symptoms of COVID. She is found to be in DKA. pH is 6.8. Anion gap is 21. BSG over 500. Patient is also unresponsive with a sodium of 119 uncorrected. Patient was started on insulin drip in the emergency department. She was also given 2 L of Normosol and is currently receiving her third liter of normal saline with 20 mEq potassium chloride. Patient is hypothermic with a temperature of 33 C. She is improving with a bear hugger. Patient is currently alert and oriented x3. She is able to give me some of her history. She reports a several day history of vomiting. She denies any diarrhea. She currently has no further nausea. Patient states that she is unvaccinated. Her and son are also at home with COVID-19. They are recovering and did not require hospitalization. Patient currently lives at home with her and her son. Allergies Allergy/AdvReac Type Severity Reaction Status Date / Time Vagisil Yeast-Control SUPP Allergy Mild Redness of Uncoded 03/25/21 12:10 Skin Home Medications Medication Instructions Recorded Confirmed Type cholecalciferol (vitamin D3) 50 50 mcg PO DAILY #30 cap 08/20/19 03/25/21 Rx mcg (2,000 unit) capsule metformin 500 mg tablet,extended 1,000 mg PO BID 90 Days #360 tab 04/23/20 03/25/21 Rx release 24 hr flash glucose scanning reader #1 ea 09/08/20 02/25/21 History (FreeStyle Jada 14 Day [place]) flash glucose sensor (FreeStyle #1 ea 09/08/20 02/25/21 History Jada 14 Day Sensor) prednisone 5 mg tablet 5 mg PO DAILY tab 09/08/20 03/25/21 History omeprazole 40 mg capsule,delayed 40 mg PO DAILY #90 cap 09/17/20 03/25/21 Rx release insulin aspart U-100 100 unit/mL See Rx Instructions SUBCUT BID #3 09/23/20 03/25/21 Rx (3 mL) subcutaneous pen (Novolog box Flexpen U-100 Insulin aspart) insulin NPH-regular 70-30 U-100 See Rx Instructions SUBCUT 11/12/20 03/25/21 Rx insulin 100 unit/mL subcutaneous .COMPLEX #2 box pen (Humulin 70/30 U-100 KwikPen) lisinopril 2.5 mg tablet 2.5 mg PO DAILY #90 tab 01/11/21 03/25/21 Rx pen needle, diabetic 32 gauge x ea 01/21/21 02/25/21 History " (BD Ultra-Fine Elly Pen Needle) Levemir FlexTouch U-100 Insuln 100 100 unit SUBCUT DAILY 30 Days #30 01/28/21 03/25/21 Rx unit/mL (3 mL) subcutaneous pen ml NS (insulin detemir U-100) OneTouch Verio test strips (blood #400 ea NS 03/09/21 Rx sugar diagnostic) Patient History Medical History (Updated 03/25/21 @ 15:38 by Kalyan Arevalo PA-C) Ankylosing spondylitis Asymmetrical hearing loss Carpal tunnel syndrome on both sides Eczema Generalized OA Hiatal hernia History of tobacco use Leukoplakia of oral cavity Lumbar canal stenosis Psoriasis Renal insufficiency Tendinitis of left rotator cuff Tendinitis of right rotator cuff Tendonitis of both shoulders Trigger thumb Trochanteric bursitis of left hip Surgical History H/O repair of right rotator cuff Hx of cholecystectomy Family History Grandmother (Maternal) Congestive heart failure (CHF) Diabetes Rheumatoid arthritis Myocardial infarction Mother Diabetes Myocardial infarction Grandfather (Maternal) Diabetes Myocardial infarction Denies family history of Ovarian cancer Prostate cancer Breast cancer Colorectal cancer Social History Smoking Status: Former smoker Tobacco Type: Cigarettes Number of Years Since Quit: 14; Second Hand Exposure: Yes; Hx Alcohol Use: No Hx Substance Use: No marital status: Current Living Situation: Family current occupational status: unemployed 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 No rigors. EYES: No icterus, gaze conjugate. Pupils equal round and reactive to light NOSE: No evidence of epistaxis. MOUTH: No lesions or candidiasis. Mucosa is moist. Tongue is midline. Patient has no teeth and no dentures in place. NECK: Supple. No evidence of JVD LUNGS: CTA B/L, no wheezes, rales or rhonchi. Good inspirational effort. Patient has no induced cough with deep inspiration. HEART: Regular, tachycardic at 103 ABDOMEN: Soft, NT, ND, BS Present. No rebound tenderness EXTREMITIES: No LE edema, pedal pulses intact and equal bilaterally. Feet are warm bilaterally. NEURO: A&OX3. Patient is able to follow commands. Pupils equal round and reactive to light. Patient tracks appropriately with her eyes. Able to move all 4 extremities. Is cooperative. Results & Data Results & Data ([facility]) Vital Signs (Past 12 Hours) Vital Signs Temp Pulse Resp BP Pulse Ox 03/25/21 14:45 103 H 31 H 121/70 100 03/25/21 14:30 103 H 30 H 113/61 100 03/25/21 14:15 33 C L 101 H 24 103/50 L 100 03/25/21 14:00 100 H 22 98/48 L 100 03/25/21 13:52 101 H 32 H 104/50 L 100 03/25/21 13:30 100 H 22 95/53 L 03/25/21 13:15 103 H 18 100 03/25/21 13:00 94 H 28 H 141/73 H 100 03/25/21 12:45 95 H 29 H 100 03/25/21 12:30 96 H 26 H 146/68 H 99 03/25/21 12:08 99 03/25/21 12:07 33.8 C L 03/25/21 11:19 101 H 18 160/79 H 99 Laboratory Results 03/25/21 12:15 03/25/21 12:15 Critical Care Results & Data Vital Signs (Past 12 Hours) Vital Signs Temp Pulse Resp BP Pulse Ox 03/25/21 15:22 125 H 03/25/21 15:00 102 H 29 H 121/62 100 03/25/21 14:45 103 H 31 H 121/70 100 03/25/21 14:30 103 H 30 H 113/61 100 03/25/21 14:15 33 C L 101 H 24 103/50 L 100 03/25/21 14:00 100 H 22 98/48 L 100 03/25/21 13:52 101 H 32 H 104/50 L 100 03/25/21 13:30 100 H 22 95/53 L 03/25/21 13:15 103 H 18 100 03/25/21 13:00 94 H 28 H 141/73 H 100 03/25/21 12:45 95 H 29 H 100 03/25/21 12:30 96 H 26 H 146/68 H 99 03/25/21 12:08 99 03/25/21 12:07 33.8 C L 03/25/21 11:19 101 H 18 160/79 H 99 Lab & Micro Results (Past 24 Hours) RBC 5.73 M/uL (4.2-5.4) H 03/25/21 WBC 18.10 K/uL (4.8-10.8) H 03/25/21 Hgb 17.3 g/dL (12.0-16.0) H 03/25/21 Hct 49.0 % (37-47) H 03/25/21 MCV 85.5 fL (80-100) 03/25/21 MCH 30.2 pg (25-34) 03/25/21 MCHC 35.3 g/dL (32-36) 03/25/21 RDW Standard Deviation 39.9 fL (36.4-46.3) 03/25/21 RDW Coefficient of Variation 12.7 % (11.5-14.5) 03/25/21 Plt Count 417 K/uL (130-400) H 03/25/21 MPV 10.6 fL (7.4-10.4) H 03/25/21 Neutrophils (%) (Auto) 75.4 % 03/25/21 Lymphocytes (%) (Auto) 11.3 % 03/25/21 Monocytes # (Auto) 2.06 K/uL (0.11-0.59) H 03/25/21 Eosinophils # (Auto) 0.02 K/uL (0-0.5) 03/25/21 Immature Granulocyte % (Auto) 1.7 % 03/25/21 Neutrophils # (Auto) 13.64 K/uL (1.4-6.5) H 03/25/21 Lymphocytes # (Auto) 2.05 K/uL (1.2-3.4) 03/25/21 Monocytes # (Auto) 2.06 K/uL (0.11-0.59) H 03/25/21 Eosinophils # (Auto) 0.02 K/uL (0-0.5) 03/25/21 Basophils # (Auto) 0.02 K/uL (0-0.2) 03/25/21 Immature Granulocyte # (Auto) 0.31 K/uL (0.00-0.02) H 03/25/21 Na 119 mmol/L (136-145) L* 03/25/21 K 4.7 mmol/L (3.5-5.1) 03/25/21 Cl 88 mmol/L (98-107) L 03/25/21 CO2 4 mmol/L (21-32) L* 03/25/21 Anion Gap 27.0 (3-11) H 03/25/21 BUN 33 mg/dl (7-18) H 03/25/21 Creatinine 1.22 mg/dl (0.6-1.2) H 03/25/21 Estimated GFR ( Amer) 56.2 ml/min 03/25/21 Estimated GFR (Non-Af Amer) 48.5 ml/min 03/25/21 BUN/Creatinine Ratio 27.0 (10-20) H 03/25/21 Glu 556 mg/dl (70-99) H* 03/25/21 Ca 9.6 mg/dl (8.5-10.1) 03/25/21 Phosphorus Level 5.6 mg/dl (2.5-4.9) H 03/25/21 Total Bilirubin 0.6 mg/dl (0.2-1) 03/25/21 AST 38 U/L (15-37) H 03/25/21 ALT 46 (12-78) 03/25/21 Alkaline Phosphatase 220 U/L (45-117) H 03/25/21 TP 9.1 gm/dl (6.4-8.2) H 03/25/21 Albumin 3.4 gm/dl (3.4-5.0) 03/25/21 Globulin 5.7 gm/dl (2.5-4.0) H 03/25/21 Albumin/Globulin Ratio 0.6 (0.9-2) L 03/25/21 Mg 2.7 mg/dl (1.8-2.4) H 03/25/21 12:15 03/25/21 Calcium Level 9.6 mg/dl (8.5-10.1) 03/25/21 12:15 03/25/21 Venous Blood pH 6.87 (7.36-7.41) L 03/25/21 12:10 03/25/21 Venous Blood Partial Pressure CO2 28 mmHg (38-50) L 03/25/21 12:10 03/25/21 Venous Blood Partial Pressure O2 60 mmHg 03/25/21 12:10 03/25/21 Venous Blood HCO3 5 mmol/L 03/25/21 12:10 03/25/21 Venous Blood Base Excess -28.0 mEq/L 03/25/21 12:10 03/25/21 Venous Blood Oxygen Saturation 84.9 % 03/25/21 12:10 03/25/21 Blood Gas Barometric Pressure 733.5 mm/Hg 03/25/21 12:10 03/25/21 Blood Gas Barometric Pressure 733.5 mm/Hg 03/25/21 12:10 03/25/21 Diagnostic Findings (Past 24 Hours) Abdomen/Pelvis CT 03/25/21 11:45 CT abd pelvis wo con CLINICAL HISTORY: n/v TECHNIQUE: Helical axial images of the abdomen and pelvis were obtained. Automated dose lowering techniques and/or adjustment according to patient size were utilized for this exam. This exam was performed without intravenous contrast. COMPARISON: Comparison is made to CT abdomen pelvis 11/09/2020 FINDINGS: Lower chest: Multifocal consolidation is seen in the right lower lobe. Liver: Unremarkable. No focal lesions are seen. Gallbladder and biliary tree: Patient is status post cholecystectomy. No intra- or extrahepatic biliary ductal dilation. Pancreas: Unremarkable, no focal lesions. Spleen: Unremarkable. Adrenals: Unremarkable. Kidneys and ureters: 2.5 cm cyst is seen in the left kidney. Bladder: Jones catheter is seen. Reproductive organs: Unremarkable. Bowel: Unremarkable appearance of the bowel. The appendix is normal. Lymph nodes Retroperitoneal: Unremarkable. Mesenteric: Unremarkable. Pelvic: Unremarkable. Peritoneum: Normal Vessels: Unremarkable. Abdominal wall: Unremarkable. Bones: Unremarkable. IMPRESSION: No acute abnormalities and in particular there is no evidence of bowel obstruction. ACT 112: Negative or not required by law. Electronically signed by: Ti Matos M.D. 03/25/2021 2:06 PM Chest X-Ray 03/25/21 11:45 XR chest 1V portable HISTORY: 60 years-old Female Chest Pain acute atypical chest pain COMPARISON: CT abdomen and pelvis of same day, chest radiograph 08/09/2018 TECHNIQUE: Portable upright AP view of the chest FINDINGS: The cardiomediastinal and hilar silhouettes are within normal limits. Mild ill- defined airspace opacities of the right midlung and right lung base. No pneumothorax, pleural effusion, airspace consolidation or overt pulmonary edema. No acute fracture. Battery pack of the left chest wall. IMPRESSION: Airspace opacities of the right lung are suggestive of viral pneumonia. ACT 112: Negative or not required by law. The above report was generated using voice recognition software. It may contain grammatical, syntax or spelling errors. Electronically signed by: Russell Cardona M.D. 03/25/2021 2:16 PM I & O Totals 24 Hours 03/24/21 03/25/21 03/26/21 06:59 06:59 06:59 Intake Total 387 / 2007. 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
[2021-03-25] MEDS ORDERED: PENDING D5NS+20mEq KCL IVF SCH (16:15)
[2021-03-25 16:18] LABS: BUN Creatinine Ratio 37.3 (10-20); Blood Urea Nitrogen 33 mg/dl (7-18); C Reactive Protein 5.07 mg/dl (0-0.29); Calcium 7.2 mg/dl (8.5-10.1); Carbon Dioxide 6 mmol/L (21-32); Chloride 94 mmol/L (98-107); Est GFR (African American) 83.4 ml/min; Est GFR (Non-African American) 71.9 ml/min; Glucose 405 mg/dl (70-99); Magnesium 2.4 mg/dl (1.8-2.4); Phosphorus 2.5 mg/dl (2.5-4.9); Potassium 3.7 mmol/L (3.5-5.1); Sodium 127 mmol/L (136-145)
[2021-03-25] MEDS ORDERED: INSULIN ASPART PER UNIT SC SCH (16:30)
[2021-03-25] MEDS ORDERED: POTASSIUM CHLORIDE 40 MEQ in SODIUM CHLORIDE 0.9% 1000ML 1,000 ML IV SCH (16:30)
[2021-03-25 16:48] LABS: Beta-Hydroxybutyrate 121.46 mg/dl (0.2-2.81)
[2021-03-25] MEDS ORDERED: POTASSIUM PHOS 3 MMOL/1 ML INFUSION IV STA (17:08)
[2021-03-25] MEDS ORDERED: POTASSIUM PHOSPHATE 15 MMOL in SODIUM CHLORIDE 0.9% 250 ML IV ONE (17:30)
[2021-03-25] MEDS: INSULIN ASPART PER UNIT SC SCH ×2 (18:06→20:38)
[2021-03-25] MEDS: POTASSIUM CHLORIDE / WTR 10 MEQ/100 ML PLCT IV SCH ×2 (18:06→19:19)
[2021-03-25 20:33] LABS: BUN Creatinine Ratio 37.1 (10-20); Calcium 7.5 mg/dl (8.5-10.1); Creatinine Clr Calc Pharmacy 79.8 ml/min; Est GFR (African American) 93.5 ml/min; Est GFR (Non-African American) 80.7 ml/min; Magnesium 2.1 mg/dl (1.8-2.4); Phosphorus 2.6 mg/dl (2.5-4.9); Potassium 4.1 mmol/L (3.5-5.1)
[2021-03-25] MEDS: POTASSIUM CHLORIDE 40 MEQ in D5W AND NSS 1,000 ML IV SCH (22:18)
[2021-03-26 00:18] LABS: BUN Creatinine Ratio 35.6 (10-20); Calcium 7.7 mg/dl (8.5-10.1); Creatinine Clr Calc Pharmacy 85.1 ml/min; Est GFR (African American) 101.1 ml/min; Est GFR (Non-African American) 87.2 ml/min; Magnesium 1.9 mg/dl (1.8-2.4); Potassium 4.5 mmol/L (3.5-5.1)
[2021-03-26 01:12] LABS: Phosphorus 1.6 mg/dl (2.5-4.9)
[2021-03-26] MEDS: POTASSIUM CHLORIDE 40 MEQ in D5W AND NSS 1,000 ML IV SCH ×4 (02:56→19:32)
[2021-03-26 06:26] LABS: Calcium 7.7 mg/dl (8.5-10.1); Creatinine Clr Calc Pharmacy 83.5 ml/min; Est GFR (African American) 101.1 ml/min; Est GFR (Non-African American) 87.2 ml/min; Magnesium 1.9 mg/dl (1.8-2.4); Potassium 4.2 mmol/L (3.5-5.1)
[2021-03-26 06:36] LABS: Phosphorus 0.6 mg/dl (2.5-4.9)
[2021-03-26] MEDS ORDERED: POTASSIUM PHOS 3 MMOL/1 ML INFUSION IV STA ×2 (06:43→20:32)
[2021-03-26] MEDS ORDERED: POTASSIUM PHOSPHATE 15 MMOL in SODIUM CHLORIDE 0.9% 250 ML IV ONE (07:00)
[2021-03-26] MEDS: INSULIN ASPART PER UNIT SC SCH ×4 (07:32→21:23)
[2021-03-26] MEDS: predniSONE 5 MG TAB PO SCH (07:44)
[2021-03-26 08:04] LABS: Eosinophils # (auto) 0.07 K/uL (0-0.5); Eosinophils % (auto) 0.6 %; Hematocrit (blood only) 39.3 % (37-47); Hemoglobin 14.4 g/dL (12.0-16.0); Immature Granulocytes # (auto) 0.12 K/uL (0.00-0.02); Lymphocytes # (auto) 0.95 K/uL (1.2-3.4); Lymphocytes % (auto) 7.8 %; Mean Corpuscular Hemoglobin 29.1 pg (25-34); Mean Corpuscular Hgb Conc 36.6 g/dL (32-36); Mean Corpuscular Volume 79.6 fL (80-100); Mean Platelet Volume 9.6 fL (7.4-10.4); Monocytes # (auto) 1.11 K/uL (0.11-0.59); Monocytes % (auto) 9.2 %; Neutrophils # (auto) 9.86 K/uL (1.4-6.5); Neutrophils % (auto) 81.4 %; Platelet Count 250 K/uL (130-400); RDW Coefficient of Variation 12.4 % (11.5-14.5); RDW Standard Deviation 35.9 fL (36.4-46.3); Red Blood Count 4.94 M/uL (4.2-5.4); White Blood Count 12.11 K/uL (4.8-10.8)
[2021-03-26 08:11] LABS: Calcium 7.9 mg/dl (8.5-10.1); Creatinine Clr Calc Pharmacy 88.2 ml/min; Est GFR (African American) 108.1 ml/min; Est GFR (Non-African American) 93.2 ml/min; Magnesium 1.9 mg/dl (1.8-2.4)
[2021-03-26 08:31] LABS: Phosphorus 0.8 mg/dl (2.5-4.9)
--- NOTE | 2021-03-26 08:40 | Critical Care Progress Note ---
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 She also had associated nausea and vomiting for 4 days. She presented to the emergency department with abdominal pain and was found to have COVID-19 as well as DKA. Patient had altered mental status on admission. She was found to have a sodium level of 119. She received 2 L of normal salt and is on the third liter of fluid which is comprised of normal saline solution with 20 mEq potassium chloride at 100 mL/h. She was also started on an insulin drip. She was found to be hypothermic at 33 C and started on warming with a bear hugger. She currently is responsive and following commands. She is alert and oriented x3. She appears ill. 24-hour events: Patient was admitted to the ICU. She been treated with insulin and warmed. Her body temperature is now normal. She continues on the insulin fusion. Her gap is improved significantly but not yet resolved and her pH is now above 7.3. Her sensorium is clearing as well Recommendations Neuro -sensorium clearing. Continue to follow. Suspect related to metabolic encephalopathy. Cardiac -remains tachycardic but normotensive. She may still be mildly volume depleted. We will give an additional liter of crystalloid this morning. Holding antihypertensive medications currently. Respiratory - Covid positive. Room air. No indication for additional work-up or imaging at this point time. GI -nausea and vomiting secondary to DKA and mild pancreatitis. Lipase better this morning. Her nausea and vomiting is improving. Continue antiemetics. Keep on noncaloric clears until patient is off the insulin infusion. RENAL/LYTES -patient presented with acute kidney injury. Creatinine this morning down to 0.71. Mild hyponatremia which is correcting. Mild hypocalcemia and hypophosphatemia. We will replace and follow. -okay to discontinue Jones catheter at this point time ENDO -severe DKA. Continue insulin infusion until gap is closed and the patient is able to tolerate oral medications. We will then transition to subcutaneous insulin. Once covered for 2 hours drip can be discontinued. Hypothermia resolved with passive external rewarming. Patient is on chronic prednisone therapy at 5 mg a day which has been continued. No indication for stress dose steroids currently. HEME -no current issues ID -leukocytosis likely reactive secondary to the patient's underlying process. Improved today. No fevers. She is Covid positive but does not meet criteria for any additional therapy. LINES/IV ACCESS - Peripheral IV x3 DVT PROPHYLAXIS - Subcu heparin CODE STATUS Discussed with patient. She wishes to be full resuscitation -level I Patient appears to be responding appropriately to therapy. I think she can likely transfer out of the intensive care unit if the insulin drip can be managed on the floor. Critical care services will sign off at this point time and will defer additional management to the hospitalist. Admission and Anticipated Discharge Date Admission Date: March 25, 2021 Subjective Patient seen and examined. EMR reviewed. Discussed with critical care nurse and patient at bedside. The patient states that she is improving. She did experience some nausea and had 2 episodes of emesis last night. She is not having any abdominal pain. She remains hemodynamically stable. Her sensorium is clearing but she continues to have somewhat slowed mentation. Review of Systems Review of Systems: All systems reviewed & are unremarkable except as noted in Subjective Physical Exam Constitutional: WD/WN, vitals as above Neck: trachea midline, no thyromegaly Respiratory: normal respiratory effort, lungs clear to auscultation Cardiovascular: RRR, no murmur, no edema Gastrointestinal (Abdomen): normal bowel sounds, soft, nontender, no hepatosplenomegaly Musculoskeletal: Extremities: extremities normal to inspection Skin: no rashes, warm and dry Neurologic: Nonfocal exam Lymphatic: no cervical lymphadenopathy Results & Data Results & Data ([facility]) Vital Signs (Past 12 Hours) Vital Signs Temp Pulse Resp BP Pulse Ox 03/26/21 08:00 102 H 03/26/21 06:00 36.8 C 102 H 21 139/66 100 03/26/21 05:00 36.8 C 102 H 24 141/63 H 100 03/26/21 04:00 36.7 C 110 H 24 131/63 100 03/26/21 03:00 36.8 C 105 H 26 H 124/63 100 03/26/21 02:00 36.8 C 108 H 29 H 124/59 L 100 03/26/21 01:00 36.7 C 118 H 17 112/59 L 100 03/26/21 00:00 36.3 C L 116 H 31 H 124/56 L 99 03/25/21 23:00 35.8 C L 114 H 36 H 133/64 99 03/25/21 22:00 35.2 C L 110 H 28 H 125/64 100 03/25/21 21:00 35.0 C L 108 H 26 H 129/67 100 Critical Care Results & Data Vital Signs (Past 12 Hours) Vital Signs Temp Pulse Resp BP Pulse Ox 03/26/21 08:00 102 H 03/26/21 06:00 36.8 C 102 H 21 139/66 100 03/26/21 05:00 36.8 C 102 H 24 141/63 H 100 03/26/21 04:00 36.7 C 110 H 24 131/63 100 03/26/21 03:00 36.8 C 105 H 26 H 124/63 100 03/26/21 02:00 36.8 C 108 H 29 H 124/59 L 100 03/26/21 01:00 36.7 C 118 H 17 112/59 L 100 03/26/21 00:00 36.3 C L 116 H 31 H 124/56 L 99 03/25/21 23:00 35.8 C L 114 H 36 H 133/64 99 03/25/21 22:00 35.2 C L 110 H 28 H 125/64 100 03/25/21 21:00 35.0 C L 108 H 26 H 129/67 100 Lab & Micro Results (Past 24 Hours) RBC 4.94 M/uL (4.2-5.4) 03/26/21 WBC 12.11 K/uL (4.8-10.8) H 03/26/21 Hgb 14.4 g/dL (12.0-16.0) 03/26/21 Hct 39.3 % (37-47) 03/26/21 MCV 79.6 fL (80-100) L 03/26/21 MCH 29.1 pg (25-34) 03/26/21 MCHC 36.6 g/dL (32-36) H 03/26/21 RDW Standard Deviation 35.9 fL (36.4-46.3) L 03/26/21 RDW Coefficient of Variation 12.4 % (11.5-14.5) 03/26/21 Plt Count 250 K/uL (130-400) 03/26/21 MPV 9.6 fL (7.4-10.4) 03/26/21 Neutrophils (%) (Auto) 81.4 % 03/26/21 Lymphocytes (%) (Auto) 7.8 % 03/26/21 Monocytes # (Auto) 1.11 K/uL (0.11-0.59) H 03/26/21 Eosinophils # (Auto) 0.07 K/uL (0-0.5) 03/26/21 Immature Granulocyte % (Auto) 1.0 % 03/26/21 Neutrophils # (Auto) 9.86 K/uL (1.4-6.5) H 03/26/21 Lymphocytes # (Auto) 0.95 K/uL (1.2-3.4) L 03/26/21 Monocytes # (Auto) 1.11 K/uL (0.11-0.59) H 03/26/21 Eosinophils # (Auto) 0.07 K/uL (0-0.5) 03/26/21 Basophils # (Auto) 0.00 K/uL (0-0.2) 03/26/21 Immature Granulocyte # (Auto) 0.12 K/uL (0.00-0.02) H 03/26/21 Na 135 mmol/L (136-145) L 03/26/21 K 4.0 mmol/L (3.5-5.1) 03/26/21 Cl 110 mmol/L (98-107) H 03/26/21 CO2 12 mmol/L (21-32) L 03/26/21 Anion Gap 13.0 (3-11) H 03/26/21 BUN 17 mg/dl (7-18) 03/26/21 Creatinine 0.71 mg/dl (0.6-1.2) 03/26/21 Estimated GFR ( Amer) 108.1 ml/min 03/26/21 Estimated GFR (Non-Af Amer) 93.2 ml/min 03/26/21 BUN/Creatinine Ratio 24.0 (10-20) H 03/26/21 Glu 191 mg/dl (70-99) H 03/26/21 Ca 7.9 mg/dl (8.5-10.1) L 03/26/21 Phosphorus Level 0.8 mg/dl (2.5-4.9) L* 03/26/21 Total Bilirubin 0.6 mg/dl (0.2-1) 03/25/21 AST 38 U/L (15-37) H 03/25/21 ALT 46 (12-78) 03/25/21 Alkaline Phosphatase 220 U/L (45-117) H 03/25/21 TP 9.1 gm/dl (6.4-8.2) H 03/25/21 Albumin 3.4 gm/dl (3.4-5.0) 03/25/21 Globulin 5.7 gm/dl (2.5-4.0) H 03/25/21 Albumin/Globulin Ratio 0.6 (0.9-2) L 03/25/21 Mg 1.9 mg/dl (1.8-2.4) 03/26/21 07:24 03/26/21 Calcium Level 7.9 mg/dl (8.5-10.1) L 03/26/21 07:24 03/26/21 Venous Blood pH 7.31 (7.36-7.41) L 03/26/21 07:24 03/26/21 Venous Blood Partial Pressure CO2 28 mmHg (38-50) L 03/25/21 12:10 03/25/21 Venous Blood Partial Pressure O2 60 mmHg 03/25/21 12:10 03/25/21 Venous Blood HCO3 5 mmol/L 03/25/21 12:10 03/25/21 Venous Blood Base Excess -28.0 mEq/L 03/25/21 12:10 03/25/21 Venous Blood Oxygen Saturation 84.9 % 03/25/21 12:10 03/25/21 Blood Gas Barometric Pressure 733.5 mm/Hg 03/25/21 12:10 03/25/21 Blood Gas Barometric Pressure 733.5 mm/Hg 03/25/21 12:10 03/25/21 Diagnostic Findings (Past 24 Hours) Abdomen/Pelvis CT 03/25/21 11:45 CT abd pelvis wo con CLINICAL HISTORY: n/v TECHNIQUE: Helical axial images of the abdomen and pelvis were obtained. Automated dose lowering techniques and/or adjustment according to patient size were utilized for this exam. This exam was performed without intravenous contrast. COMPARISON: Comparison is made to CT abdomen pelvis 11/09/2020 FINDINGS: Lower chest: Multifocal consolidation is seen in the right lower lobe. Liver: Unremarkable. No focal lesions are seen. Gallbladder and biliary tree: Patient is status post cholecystectomy. No intra- or extrahepatic biliary ductal dilation. Pancreas: Unremarkable, no focal lesions. Spleen: Unremarkable. Adrenals: Unremarkable. Kidneys and ureters: 2.5 cm cyst is seen in the left kidney. Bladder: Jones catheter is seen. Reproductive organs: Unremarkable. Bowel: Unremarkable appearance of the bowel. The appendix is normal. Lymph nodes Retroperitoneal: Unremarkable. Mesenteric: Unremarkable. Pelvic: Unremarkable. Peritoneum: Normal Vessels: Unremarkable. Abdominal wall: Unremarkable. Bones: Unremarkable. IMPRESSION: No acute abnormalities and in particular there is no evidence of bowel obstruction. ACT 112: Negative or not required by law. Electronically signed by: Ti Matos M.D. 03/25/2021 2:06 PM Chest X-Ray 03/25/21 11:45 XR chest 1V portable HISTORY: 60 years-old Female Chest Pain acute atypical chest pain COMPARISON: CT abdomen and pelvis of same day, chest radiograph 08/09/2018 TECHNIQUE: Portable upright AP view of the chest FINDINGS: The cardiomediastinal and hilar silhouettes are within normal limits. Mild ill- defined airspace opacities of the right midlung and right lung base. No pneumothorax, pleural effusion, airspace consolidation or overt pulmonary edema. No acute fracture. Battery pack of the left chest wall. IMPRESSION: Airspace opacities of the right lung are suggestive of viral pneumonia. ACT 112: Negative or not required by law. The above report was generated using voice recognition software. It may contain grammatical, syntax or spelling errors. Electronically signed by: Russell Cardona M.D. 03/25/2021 2:16 PM I & O Totals 24 Hours 03/25/21 03/26/21 03/27/21 06:59 06:59 06:59 Intake Total 7252.226 / 7252.226 970.714 / 970.714 Output Total 3650 / 3650 Balance 3602.226 / 3602.226 970.714 / 970.714 Cumulative 03/25/21 11:13 thru 03/26/21 07:43 Intake Total 8222.940 Output Total 3650 Balance 4572.940 RT Ventilator Mngmt (Last Documented) Ventilator Ordered Settings Respiratory Rate 21 03/26/21 06:00 Ventilator - PT Measurements Respiratory Rate 21 Coding Level of Care Code 21867 Subseq Hosp Care Lvl 3 Diagnoses Uncontrolled type 2 diabetes mellitus with hyperglycemia, with long-term current use of insulin E11.65; Z79.4 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
[2021-03-26] MEDS ORDERED: LACTATED RINGER'S 2,000 ML IV ONE (08:45)
[2021-03-26] MEDS ORDERED: PHARMACY GLYCEMIC MGMT CONSULT PRN (09:33)
[2021-03-26] MEDS: INSULIN REGULAR 250 UNITS in SODIUM CHLORIDE 0.9% 247.5 ML IV SCH ×3 (10:07→14:45)
[2021-03-26] MEDS ORDERED: INSULIN GLARGINE SOLOSTAR 100 UNITS/ML 3 ML PEN SC SCH (10:30)
[2021-03-26 11:53] LABS: BUN Creatinine Ratio 19.5 (10-20); Calcium 7.6 mg/dl (8.5-10.1); Creatinine Clr Calc Pharmacy 94.9 ml/min; Est GFR (African American) 112.1 ml/min; Est GFR (Non-African American) 96.7 ml/min; Magnesium 1.8 mg/dl (1.8-2.4); Potassium 4.1 mmol/L (3.5-5.1)
[2021-03-26] MEDS ORDERED: INSULIN GLARGINE SOLOSTAR 100 UNITS/ML 3 ML PEN SC STA (14:24)
--- NOTE | 2021-03-26 14:36 | Pharmacy Report ---
Pharmacy Glycemic Short Note 2 - Date of Service March 26, 2021 - Glycemic Short BSG Results (Last 24 hours): 03/25/21 03/25/21 03/25/21 14:28 15:30 15:40 Glucose 405 H* POC Glucose 431 H* 439 H* 03/25/21 03/25/21 03/25/21 18:13 19:23 19:57 Glucose 281 H POC Glucose 286 H 289 H 03/25/21 03/25/21 03/25/21 20:25 21:16 22:23 Glucose POC Glucose 245 H 235 H 170 H 03/25/21 03/25/21 03/26/21 23:33 23:44 00:40 Glucose 212 H POC Glucose 194 H 218 H 03/26/21 03/26/21 03/26/21 01:38 03:42 04:46 Glucose 201 H POC Glucose 194 H 195 H 03/26/21 03/26/21 03/26/21 05:13 07:24 07:24 Glucose 191 H POC Glucose 178 H 172 H 03/26/21 03/26/21 03/26/21 11:21 11:22 12:37 Glucose 200 H POC Glucose 186 H 213 H 03/26/21 13:38 Glucose POC Glucose 211 H OUTPATIENT ANTIDIABETIC REGIMEN: * Tresiba 70 units SC daily * Humulin 70/30: 30 units SC at 0400 + 50 units SC at 2130 * Metformin 1000 mg PO BIDM * HbA1c = 13.3% (03/25/21) * 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 Pharmacy has been consulted to assist with inpatient glycemic management. * Initial labs showed a severe acidosis with VBG pH 6.9, AG 27, CO2 4, beta-OH 106. Patient was started on an insulin drip. * This morning, patient was still in DKA but as of around noon, it appears the gap has closed as evidenced by: * AG 9, CO2 15 and VBG pH 7.31 * Adjusted goal range on the drip to be 110-180 mg/dL. Patient continues to rate at high insulin rates. Currently the drip is at 12.4 units/hr. * Do not feel comfortable stopping insulin drip at such high rates despite the gap closing. * Will start Lantus to hopefully help bring insulin drip rates down. Patient is still not eating so will be semi-conservative with basal dosing. PLAN FOR INPATIENT GLYCEMIC CONTROL: * Hold outpatient oral diabetes medications * Continue IV insulin infusion * May discontinue infusion when two consecutive BSGs are less than 180 mg/dL AND infusion rate is 3 units/hr or less * Basal insulin * Lantus 50 units SC x 1 now * Lantus 30-50 units SC BID PLAN FOR DISCHARGE: * To be determined
[2021-03-26] MEDS: PENDING D5NS+40mEq KCL IVF SCH ×2 (16:04→16:06)
[2021-03-26 19:41] LABS: BUN Creatinine Ratio 12.8 (10-20); Calcium 8.1 mg/dl (8.5-10.1); Creatinine Clr Calc Pharmacy 104.4 ml/min; Est GFR (African American) 115.6 ml/min; Est GFR (Non-African American) 99.8 ml/min; Potassium 3.4 mmol/L (3.5-5.1)
[2021-03-26 20:10] LABS: C Reactive Protein 4.02 mg/dl (0-0.29); Phosphorus 0.6 mg/dl (2.5-4.9)
[2021-03-26] MEDS ORDERED: POTASSIUM CHLORIDE / WTR 10 MEQ/100 ML PLCT IV STA (20:24)
--- NOTE | 2021-03-26 20:42 | Hospitalist Progress Note ---
Date of Service March 26, 2021 Assessment & Plan (1) Diabetic ketoacidosis associated with type 2 diabetes mellitus: Plan: Venous pH 6.87 on admission. s/p bicarbonate at presentation, followed by copious IV hydration + IV insulin. Admitted to ICU - serial labs. pH improving, anion gap acidosis improving, electrolytes improving with above. DKA likely 2nd to otto COVID-19 infection in the setting of chronic, poorly-controlled T2DM. states she was "doing fine" before coming down with COVID. Appreciate ICU support. Appreciate pharmacy glycemic team support. Cont IV fluids, IV insulin, serial labs, electrolyte replacement. Lower IV fluid rate to 150cc/hr. Once gap is closed d/c any dextrose-containing fluids. (2) Uncontrolled type 2 diabetes mellitus with hyperglycemia, with long-term current use of insulin: Plan: HbA1C 13.3% With concurrent DKA. Pharmacy glycemic team assistance much appreciated. (3) Pneumonia due to COVID-19 virus: Plan: right-sided as seen on cxr. currently stable O2 sats in RA but at high risk of clinical worsening given her DKA/T2DM and chronic prednisone use/immunosuppression. Low threshold for IV dexamethasone if any worsening of her pulmonary status. 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 If pneumonia worsens would advise changing to dexamethasone and giving 6mg/day for standard COVID treatment. (5) History of tobacco use: Plan: noted (6) Hypothermia: Plan: 2nd to severe DKA and severe dehydration. s/p warming blanket, correction of DKA, etc - hypothermia resolved. Procal negative. Blood cx's negative. (7) Acute hyponatremia: Plan: Corrected Na level at admission 130. Remaining hyponatremia 2nd volume depletion. Now resolved. (8) Acute metabolic encephalopathy: Plan: 2nd to DKA, COVID-19?, other factors? Supportive care. Avoid benzos/sedatives. Serial exams. (9) Psoriatic arthritis: Plan: On chronic prednisone for such, 5mg/day. No active flare at this time. (10) GERD (gastroesophageal reflux disease): Plan: PPI (11) Hypertension: Plan: Hold NICK at this time (12) Hyperlipidemia: Plan: Not on meds for such at home (13) DVT prophylaxis: Plan: lovenox BID (14) Hypophosphatemia: Plan: replace IV serial phos levels 2nd DKA Plan: AST mildly elevated - likely due to COVID infection - repeat in am CRP checked today - mildly elevated, but trended from 5 to 4 extensively updated by phone this evening Admission and Anticipated Discharge Date Admission Date: March 25, 2021 Subjective events of last 24 hours noted remains on insulin infusion with closing anion gap acidosis transferred from ICU to COVID unit - ICU status no longer needed saw the patient on the COVID unit she was requesting something to eat she denied cp, abd pain or headache did c/o "my hands" (joints) had nausea earlier in the afternoon - now improved it was very difficult to communicate with her due to confusion and hearing impairment latter confirmed with by phone tele by report stable overnight Review of Systems Review of Systems: gen - no fevers or chills CV - no cp, no orthopnea pulm - mild cough, no dyspnea GI - no abd pain; no emesis since yesterday Physical Exam Physical Exam: gen - looks unwell, mildly confused, but NAD mouth - MM dry; no thrush ears - severe hearing impairment neck - no JVD heart - mildly tachycardic, s1 s2 lungs - right sided rales with focal right-sided wheezes, left lung clear, mild "quiet" tachypnea abd - soft NT ND BS+ ext - no edema, mild clubbing of fingernails, pulses 2+ b/l psych - a/o to person/place only musculo - no active synovitis of small joints of b/l hands Results & Data Results & Data ([facility]) Vital Signs (Past 12 Hours) Vital Signs Temp Pulse Pulse Resp BP BP Pulse Ox 03/26/21 15:55 36.7 C 103 H 18 119/58 L 97 03/26/21 14:30 37.5 C 109 H 28 H 99 03/26/21 14:00 37.5 C 96 H 29 H 122/70 100 03/26/21 13:30 37.4 C 90 22 100 03/26/21 13:00 37.4 C 90 25 H 134/63 100 03/26/21 12:00 37.3 C 95 H 24 138/65 100 03/26/21 11:00 37.2 C 94 H 25 H 138/62 100 03/26/21 10:00 37.2 C 96 H 24 131/64 100 03/26/21 09:00 37.1 C 98 H 21 137/66 100 Laboratory Results Laboratory Results - last 24 hr 03/25/21 03/25/21 03/25/21 23:33 23:44 23:44 WBC RBC Hgb Hct MCV MCH MCHC RDW Std Deviation RDW Coeff of Antonieta Plt Count MPV Immature Gran % (Auto) Neut % (Auto) Lymph % (Auto) Harris % (Auto) Eos % (Auto) Baso % (Auto) Neut # (Auto) Lymph # (Auto) Harris # (Auto) Eos # (Auto) Baso # (Auto) Immature Gran # (Auto) VBG pH 7.16 L Sodium 130 L Potassium 4.5 Chloride 103 Carbon Dioxide 7 L* Anion Gap 20.0 H BUN 27 H Creatinine 0.75 Est Cr Clr Drug Dosing 85.1 Est GFR ( Amer) 101.1 Est GFR (Non-Af Amer) 87.2 BUN/Creatinine Ratio 35.6 H Glucose 212 H POC Glucose 194 H Calcium 7.7 L Phosphorus 1.6 L D Magnesium 1.9 C-Reactive Protein Lipase 03/26/21 03/26/21 03/26/21 00:40 01:38 03:42 WBC RBC Hgb Hct MCV MCH MCHC RDW Std Deviation RDW Coeff of [place] Plt Count MPV Immature Gran % (Auto) Neut % (Auto) Lymph % (Auto) Harris % (Auto) Eos % (Auto) Baso % (Auto) Neut # (Auto) Lymph # (Auto) Harris # (Auto) Eos # (Auto) Baso # (Auto) Immature Gran # (Auto) VBG pH Sodium Potassium Chloride Carbon Dioxide Anion Gap BUN Creatinine Est Cr Clr Drug Dosing Est GFR ( Amer) Est GFR (Non-Af Amer) BUN/Creatinine Ratio Glucose POC Glucose 218 H 194 H 195 H Calcium Phosphorus Magnesium C-Reactive Protein Lipase 03/26/21 03/26/21 03/26/21 04:46 04:46 04:46 WBC RBC Hgb Hct MCV MCH MCHC RDW Std Deviation RDW Coeff of Anton[place] Plt Count MPV Immature Gran % (Auto) Neut % (Auto) Lymph % (Auto) Harris % (Auto) Eos % (Auto) Baso % (Auto) Neut # (Auto) Lymph # (Auto) Harris # (Auto) Eos # (Auto) Baso # (Auto) Immature Gran # (Auto) VBG pH 7.27 L Sodium 133 L Potassium 4.2 Chloride 108 H Carbon Dioxide 11 L Anion Gap 14.0 H BUN 21 H Creatinine 0.75 Est Cr Clr Drug Dosing 83.5 Est GFR ( Amer) 101.1 Est GFR (Non-Af Amer) 87.2 BUN/Creatinine Ratio 28.0 H Glucose 201 H POC Glucose Calcium 7.7 L Phosphorus 0.6 L* D Magnesium 1.9 C-Reactive Protein Lipase 266 03/26/21 03/26/21 03/26/21 04:46 05:13 07:24 WBC 12.11 H RBC 4.94 Hgb 14.4 Hct 39.3 MCV 79.6 L D MCH 29.1 MCHC 36.6 H RDW Std Deviation 35.9 L RDW Coeff of Antonieta 12.4 Plt Count 250 MPV 9.6 Immature Gran % (Auto) 1.0 Neut % (Auto) 81.4 Lymph % (Auto) 7.8 Harris % (Auto) 9.2 Eos % (Auto) 0.6 Baso % (Auto) 0.0 Neut # (Auto) 9.86 H Lymph # (Auto) 0.95 L Harris # (Auto) 1.11 H Eos # (Auto) 0.07 Baso # (Auto) 0.00 Immature Gran # (Auto) 0.12 H VBG pH Sodium 135 L Potassium 4.0 Chloride 110 H Carbon Dioxide 12 L Anion Gap 13.0 H BUN 17 Creatinine 0.71 Est Cr Clr Drug Dosing 88.2 Est GFR ( Amer) 108.1 Est GFR (Non-Af Amer) 93.2 BUN/Creatinine Ratio 24.0 H Glucose 191 H POC Glucose 178 H Calcium 7.9 L Phosphorus 0.8 L* Magnesium 1.9 C-Reactive Protein Lipase 03/26/21 03/26/21 03/26/21 07:24 07:24 11:21 WBC RBC Hgb Hct MCV MCH MCHC RDW Std Deviation RDW Coeff of [place] Plt Count MPV Immature Gran % (Auto) Neut % (Auto) Lymph % (Auto) Harris % (Auto) Eos % (Auto) Baso % (Auto) Neut # (Auto) Lymph # (Auto) Harris # (Auto) Eos # (Auto) Baso # (Auto) Immature Gran # (Auto) VBG pH 7.31 L Sodium 136 Potassium 4.1 Chloride 112 H Carbon Dioxide 15 L Anion Gap 9.0 BUN 13 Creatinine 0.66 Est Cr Clr Drug Dosing 94.9 Est GFR ( Amer) 112.1 Est GFR (Non-Af Amer) 96.7 BUN/Creatinine Ratio 19.5 Glucose 200 H POC Glucose 172 H Calcium 7.6 L Phosphorus 1.0 L* Magnesium 1.8 C-Reactive Protein Lipase 03/26/21 03/26/21 03/26/21 11:21 11:22 12:37 WBC RBC Hgb Hct MCV MCH MCHC RDW Std Deviation RDW Coeff of [place] Plt Count MPV Immature Gran % (Auto) Neut % (Auto) Lymph % (Auto) Harris % (Auto) Eos % (Auto) Baso % (Auto) Neut # (Auto) Lymph # (Auto) Harris # (Auto) Eos # (Auto) Baso # (Auto) Immature Gran # (Auto) VBG pH 7.31 L Sodium Potassium Chloride Carbon Dioxide Anion Gap BUN Creatinine Est Cr Clr Drug Dosing Est GFR ( Amer) Est GFR (Non-Af Amer) BUN/Creatinine Ratio Glucose POC Glucose 186 H 213 H Calcium Phosphorus Magnesium C-Reactive Protein Lipase 03/26/21 03/26/21 03/26/21 13:38 14:31 15:30 WBC RBC Hgb Hct MCV MCH MCHC RDW Std Deviation RDW Coeff of [place] Plt Count MPV Immature Gran % (Auto) Neut % (Auto) Lymph % (Auto) Harris % (Auto) Eos % (Auto) Baso % (Auto) Neut # (Auto) Lymph # (Auto) Harris # (Auto) Eos # (Auto) Baso # (Auto) Immature Gran # (Auto) VBG pH Sodium Potassium Chloride Carbon Dioxide Anion Gap BUN Creatinine Est Cr Clr Drug Dosing Est GFR ( Amer) Est GFR (Non-Af Amer) BUN/Creatinine Ratio Glucose POC Glucose 211 H 191 H 179 H Calcium Phosphorus Magnesium C-Reactive Protein Lipase 03/26/21 03/26/21 03/26/21 17:10 19:09 19:09 WBC RBC Hgb Hct MCV MCH MCHC RDW Std Deviation RDW Coeff of [place] Plt Count MPV Immature Gran % (Auto) Neut % (Auto) Lymph % (Auto) Harris % (Auto) Eos % (Auto) Baso % (Auto) Neut # (Auto) Lymph # (Auto) Harris # (Auto) Eos # (Auto) Baso # (Auto) Immature Gran # (Auto) VBG pH 7.40 Sodium 138 Potassium 3.4 L D Chloride 115 H Carbon Dioxide 17 L Anion Gap 6.0 BUN 8 D Creatinine 0.60 Est Cr Clr Drug Dosing 104.4 Est GFR ( Amer) 115.6 Est GFR (Non-Af Amer) 99.8 BUN/Creatinine Ratio 12.8 Glucose 155 H POC Glucose 192 H Calcium 8.1 L Phosphorus 0.6 L* Magnesium C-Reactive Protein 4.02 H Lipase 03/26/21 03/26/21 19:14 21:11 WBC RBC Hgb Hct MCV MCH MCHC RDW Std Deviation RDW Coeff of Anton[place] Plt Count MPV Immature Gran % (Auto) Neut % (Auto) Lymph % (Auto) Harris % (Auto) Eos % (Auto) Baso % (Auto) Neut # (Auto) Lymph # (Auto) Harris # (Auto) Eos # (Auto) Baso # (Auto) Immature Gran # (Auto) VBG pH Sodium Potassium Chloride Carbon Dioxide Anion Gap BUN Creatinine Est Cr Clr Drug Dosing Est GFR ( Amer) Est GFR (Non-Af Amer) BUN/Creatinine Ratio Glucose POC Glucose 165 H 119 H Calcium Phosphorus Magnesium C-Reactive Protein Lipase PG Care Time/CCT Total # of Minutes Spent Total Time Spent with Patient: Total time spent is greater than 50% in coordination of care (as documented) at patient's floor/unit and/or counseling patient: Coding Level of Care Code 46251 Subseq Hosp Care Lvl 3 Diagnoses Diabetic ketoacidosis associated with type 2 diabetes mellitus E11.10 Uncontrolled type 2 diabetes mellitus with hyperglycemia, with long-term current use of insulin E11.65; 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 Z79.52 History of tobacco use Z87.891 Hypothermia T68.XXXA Acute hyponatremia E87.1 Acute metabolic encephalopathy G93.41 Psoriatic arthritis L40.50 GERD (gastroesophageal reflux disease) K21.9 Hypertension I10 Hypertension type: essential hypertension Hyperlipidemia E78.2 Hyperlipidemia type: mixed hyperlipidemia DVT prophylaxis Z29.9 Pneumonia due to COVID-19 virus U07.1; J12.82 Hypophosphatemia E83.39 (1) Hypertension Hypertension type: essential hypertension Qualified Code(s): I10 - Essential (primary) hypertension (2) Hyperlipidemia Hyperlipidemia type: mixed hyperlipidemia Qualified Code(s): E78.2 - Mixed hyperlipidemia
[2021-03-26] MEDS ORDERED: POTASSIUM PHOSPHATE 45 MMOL in SODIUM CHLORIDE 0.9% 1000ML 1,000 ML IV ONE (21:00)
[2021-03-26] MEDS: INSULIN GLARGINE SOLOSTAR 100 UNITS/ML 3 ML PEN SC SCH (21:22)
[2021-03-26] MEDS: ENOXAPARIN INJ 40 MG/0.4 ML SYR SQ SCH (21:24)
[2021-03-26] MEDS: DEXTROSE 50% 50 ML SYRINGE IV PRN (23:21)
[2021-03-27] MEDS: POTASSIUM CHLORIDE 40 MEQ in D5W AND NSS 1,000 ML IV SCH ×2 (02:42→09:18)
[2021-03-27] MEDS: DEXTROSE 50% 50 ML SYRINGE IV PRN (03:16)
[2021-03-27 07:25] LABS: Basophils # (auto) 0.01 K/uL (0-0.2); Basophils % (auto) 0.2 %; Immature Granulocytes # (auto) 0.02 K/uL (0.00-0.02); Immature Granulocytes % (auto) 0.3 %; Lymphocytes # (auto) 1.05 K/uL (1.2-3.4); Lymphocytes % (auto) 16.3 %; Mean Corpuscular Hemoglobin 29.3 pg (25-34); Mean Corpuscular Hgb Conc 37.1 g/dL (32-36); Mean Corpuscular Volume 78.8 fL (80-100); Mean Platelet Volume 9.3 fL (7.4-10.4); Monocytes # (auto) 0.63 K/uL (0.11-0.59); Monocytes % (auto) 9.8 %; Neutrophils # (auto) 4.73 K/uL (1.4-6.5); Neutrophils % (auto) 73.4 %; Platelet Count 195 K/uL (130-400); RDW Coefficient of Variation 12.7 % (11.5-14.5); RDW Standard Deviation 36.7 fL (36.4-46.3); Red Blood Count 4.44 M/uL (4.2-5.4); White Blood Count 6.44 K/uL (4.8-10.8)
[2021-03-27 08:01] LABS: Aspartate Aminotransferase 23 U/L (15-37); Lipase 122 U/L (73-393)
[2021-03-27] MEDS: PANTOprazole 40 MG TAB PO SCH (08:11)
[2021-03-27] MEDS: predniSONE 5 MG TAB PO SCH (08:12)
[2021-03-27] MEDS: POTASSIUM CHLORIDE CRTAB 20 MEQ TABCR PO SCH (08:12)
[2021-03-27] MEDS: ENOXAPARIN INJ 40 MG/0.4 ML SYR SQ SCH ×2 (08:12→21:25)
[2021-03-27] MEDS: INSULIN GLARGINE SOLOSTAR 100 UNITS/ML 3 ML PEN SC SCH ×2 (09:23→21:25)
[2021-03-27] MEDS: INSULIN ASPART PER UNIT SC SCH ×4 (09:24→21:24)
[2021-03-27 12:33] LABS: Calcium 7.8 mg/dl (8.5-10.1); Creatinine Clr Calc Pharmacy 139.2 ml/min; Est GFR (African American) 127.1 ml/min; Est GFR (Non-African American) 109.7 ml/min; Potassium 3.6 mmol/L (3.5-5.1)
[2021-03-27 12:52] LABS: Phosphorus 1.3 mg/dl (2.5-4.9)
[2021-03-27] MEDS ORDERED: POTASSIUM PHOS 3 MMOL/1 ML INFUSION IV STA (13:39)
[2021-03-27] MEDS ORDERED: POTASSIUM PHOSPHATE 24 MMOL in SODIUM CHLORIDE 0.9% 500 ML IV ONE (13:45)
--- NOTE | 2021-03-27 14:28 | Pharmacy Report ---
Pharmacy Glycemic Short Note 2 - Date of Service March 27, 2021 - Glycemic Short BSG Results (Last 24 hours): 03/26/21 03/26/21 03/26/21 14:31 15:30 17:10 Glucose POC Glucose 191 H 179 H 192 H 03/26/21 03/26/21 03/26/21 19:09 19:14 21:11 Glucose 155 H POC Glucose 165 H 119 H 03/26/21 03/26/21 03/27/21 23:09 23:38 01:08 Glucose POC Glucose 74 125 H 99 03/27/21 03/27/21 03/27/21 03:11 03:35 05:12 Glucose POC Glucose 84 135 H 120 H 03/27/21 03/27/21 03/27/21 07:08 11:58 12:11 Glucose 147 H POC Glucose 121 H 145 H OUTPATIENT ANTIDIABETIC REGIMEN: * Tresiba 70 units SC daily * Humulin 70/30: 30 units SC at 0400 + 50 units SC at 2130 * Metformin 1000 mg PO BIDM * HbA1c = 13.3% (03/25/21) * 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 So far, patient has tolerated transition to subcutaneous insulin well. * BSGs today: 121-145 mg/dL * Continue with Lantus scale and no changes to Novolog at this time. * Will add overnight checks for first night off the drip. 03/26: * 60 yo F admitted secondary to COVID-19 and found to be in DKA. Pharmacy has been consulted to assist with inpatient glycemic management. * Initial labs showed a severe acidosis with VBG pH 6.9, AG 27, CO2 4, beta-OH 106. Patient was started on an insulin drip. * This morning, patient was still in DKA but as of around noon, it appears the gap has closed as evidenced by: * AG 9, CO2 15 and VBG pH 7.31 * Adjusted goal range on the drip to be 110-180 mg/dL. Patient continues to rate at high insulin rates. Currently the drip is at 12.4 units/hr. * Do not feel comfortable stopping insulin drip at such high rates despite the gap closing. * Will start Lantus to hopefully help bring insulin drip rates down. Patient is still not eating so will be semi-conservative with basal dosing. PLAN FOR INPATIENT GLYCEMIC CONTROL: * Hold outpatient oral diabetes medications * Discontinued Insulin infusion * Basal insulin * Lantus 30-50 units SC BID * Bolus insulin * Accuchecks ACHS * Goal range: 110-140 mg/dL * Correction Factor: 15 mg/dL/unit * Carb Ratio: 5 g CHO/unit PLAN FOR DISCHARGE: * To be determined
--- NOTE | 2021-03-27 22:57 | Hospitalist Progress Note ---
Date of Service March 27, 2021 Assessment & Plan (1) Diabetic ketoacidosis associated with type 2 diabetes mellitus: Plan: RESOLVED. Gap closed. Mentation improved. Insulin drip d/c; over to SC basal-bolus regimen per pharmacy recommendations. Venous pH 6.87 on admission. s/p bicarbonate at presentation, followed by copious IV hydration + IV insulin. Admitted to ICU x 24 hours. DKA likely 2nd to otto COVID-19 infection in the setting of chronic, po jared-controlled T2DM. states she was "doing fine" before coming down with COVID. Can stop IVF. Can stop q6h labs. Appreciate pharmacy consult & recs. (2) Uncontrolled type 2 diabetes mellitus with hyperglycemia, with long-term current use of insulin: Plan: HbA1C 13.3% With concurrent DKA. DKA now resolved. Pharmacy glycemic team assistance much appreciated. BSG control is very good today. Advance diet to T2DM regular diet. (3) Pneumonia due to COVID-19 virus: Plan: right-sided as seen on cxr. currently stable O2 sats in RA fortunately no clinical worsening to date Low threshold for IV dexamethasone if any worsening of her pulmonary status. 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 If pneumonia worsens would advise changing to dexamethasone and giving 6mg/day for standard COVID treatment. (5) History of tobacco use: Plan: noted (6) Hypothermia: Plan: 2nd to severe DKA and severe dehydration. s/p warming blanket, correction of DKA, etc - hypothermia resolved. Procal negative. Blood cx's negative. NO evidence of any bacterial process. (7) Acute hyponatremia: Plan: resolved. (8) Acute metabolic encephalopathy: Plan: 2nd to DKA, COVID-19?, other factors? Supportive care. Improved tremendously w/ resolution of DKA. (9) Psoriatic arthritis: Plan: On chronic prednisone for such, 5mg/day. No active flare at this time. (10) GERD (gastroesophageal reflux disease): Plan: PPI (11) Hypertension: Plan: Cont to hold NICK (12) Hyperlipidemia: Plan: Not on meds for such at home (13) DVT prophylaxis: Plan: lovenox BID (14) Hypophosphatemia: Plan: replace IV once again today repeat phos level AM 2nd DKA Plan: AST mildly elevated - likely due to COVID infection - trend extensively updated by phone yesterday evening obtain PT/OT javier Admission and Anticipated Discharge Date Admission Date: March 25, 2021 Subjective patient much more awake, alert today her only complaint was "I want more food" denies any significant cough no nausea, emesis or abd pain no dysuria a little weak today but staff report she is getting up w/ assistance off insulin drip as of this am Review of Systems Review of Systems: gen - no fevers or chills HENT - no sore throat, no loss of taste or smell CV - no cp pulm - no dyspnea Physical Exam Physical Exam: gen - looks much better today mouth - MMM ears - severe hearing impairment neck - no JVD heart - RRR, s1 s2, no murmur lungs - right sided rales and wheeze essentially resolved; left lung clear abd - soft NT ND BS+ ext - no edema, mild clubbing of fingernails, pulses 2+ b/l psych - much more awake/alert today Results & Data Results & Data ([facility]) Vital Signs (Past 12 Hours) Vital Signs Temp Pulse Resp BP Pulse Ox 03/27/21 22:17 37.0 C 73 18 125/73 96 03/27/21 16:49 37.3 C 106 H 16 112/69 99 Laboratory Results Laboratory Results - last 24 hr 03/26/21 03/26/21 03/27/21 23:09 23:38 01:08 WBC RBC Hgb Hct MCV MCH MCHC RDW Std Deviation RDW Coeff of Anton[place] Plt Count MPV Immature Gran % (Auto) Neut % (Auto) Lymph % (Auto) [place] % (Auto) Eos % (Auto) Baso % (Auto) Neut # (Auto) Lymph # (Auto) [place] # (Auto) Eos # (Auto) Baso # (Auto) Immature Gran # (Auto) Sodium Potassium Chloride Carbon Dioxide Anion Gap BUN Creatinine Est Cr Clr Drug Dosing Est GFR ( Amer) Est GFR (Non-Af Amer) BUN/Creatinine Ratio Glucose POC Glucose 74 125 H 99 Calcium Phosphorus AST Lipase 03/27/21 03/27/21 03/27/21 03:11 03:35 05:12 WBC RBC Hgb Hct MCV MCH MCHC RDW Std Deviation RDW Coeff of [place] Plt Count MPV Immature Gran % (Auto) Neut % (Auto) Lymph % (Auto) [place] % (Auto) Eos % (Auto) Baso % (Auto) Neut # (Auto) Lymph # (Auto) [place] # (Auto) Eos # (Auto) Baso # (Auto) Immature Gran # (Auto) Sodium Potassium Chloride Carbon Dioxide Anion Gap BUN Creatinine Est Cr Clr Drug Dosing Est GFR ( Amer) Est GFR (Non-Af Amer) BUN/Creatinine Ratio Glucose POC Glucose 84 135 H 120 H Calcium Phosphorus AST Lipase 03/27/21 03/27/21 03/27/21 06:45 06:45 07:08 WBC 6.44 RBC 4.44 Hgb 13.0 Hct 35.0 L MCV 78.8 L MCH 29.3 MCHC 37.1 H RDW Std Deviation 36.7 RDW Coeff of Antonieta 12.7 Plt Count 195 MPV 9.3 Immature Gran % (Auto) 0.3 Neut % (Auto) 73.4 Lymph % (Auto) 16.3 [place] % (Auto) 9.8 Eos % (Auto) 0.0 Baso % (Auto) 0.2 Neut # (Auto) 4.73 Lymph # (Auto) 1.05 L [place] # (Auto) 0.63 H Eos # (Auto) 0.00 Baso # (Auto) 0.01 Immature Gran # (Auto) 0.02 Sodium Potassium Chloride Carbon Dioxide Anion Gap BUN Creatinine Est Cr Clr Drug Dosing Est GFR ( Amer) Est GFR (Non-Af Amer) BUN/Creatinine Ratio Glucose POC Glucose 121 H Calcium Phosphorus AST 23 Lipase 122 03/27/21 03/27/21 03/27/21 11:58 12:11 17:31 WBC RBC Hgb Hct MCV MCH MCHC RDW Std Deviation RDW Coeff of [place] Plt Count MPV Immature Gran % (Auto) Neut % (Auto) Lymph % (Auto) [place] % (Auto) Eos % (Auto) Baso % (Auto) Neut # (Auto) Lymph # (Auto) [place] # (Auto) Eos # (Auto) Baso # (Auto) Immature Gran # (Auto) Sodium 143 Potassium 3.6 Chloride 116 H Carbon Dioxide 20 L Anion Gap 7.0 BUN 3 L D Creatinine 0.45 L Est Cr Clr Drug Dosing 139.2 Est GFR ( Amer) 127.1 Est GFR (Non-Af Amer) 109.7 BUN/Creatinine Ratio 6.0 L Glucose 147 H POC Glucose 145 H 148 H Calcium 7.8 L Phosphorus 1.3 L* AST Lipase 03/27/21 20:53 WBC RBC Hgb Hct MCV MCH MCHC RDW Std Deviation RDW Coeff of [place] Plt Count MPV Immature Gran % (Auto) Neut % (Auto) Lymph % (Auto) [place] % (Auto) Eos % (Auto) Baso % (Auto) Neut # (Auto) Lymph # (Auto) [place] # (Auto) Eos # (Auto) Baso # (Auto) Immature Gran # (Auto) Sodium Potassium Chloride Carbon Dioxide Anion Gap BUN Creatinine Est Cr Clr Drug Dosing Est GFR ( Amer) Est GFR (Non-Af Amer) BUN/Creatinine Ratio Glucose POC Glucose 154 H Calcium Phosphorus AST Lipase PG Care Time/CCT Total # of Minutes Spent Total Time Spent with Patient: Total time spent is greater than 50% in coordination of care (as documented) at patient's floor/unit and/or counseling patient: Coding Level of Care Code 44603 Subseq Hosp Care Lvl 2 Diagnoses Diabetic ketoacidosis associated with type 2 diabetes mellitus E11.10 Uncontrolled type 2 diabetes mellitus with hyperglycemia, with long-term current use of insulin E11.65; Z79.4 Pneumonia due to COVID-19 virus U07.1; J12.82 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
[2021-03-28] MEDS: INSULIN ASPART PER UNIT SC SCH ×6 (00:04→21:03)
[2021-03-28 07:02] LABS: BUN Creatinine Ratio 7.5 (10-20); Calcium 8.5 mg/dl (8.5-10.1); Creatinine Clr Calc Pharmacy 164.2 ml/min; Est GFR (African American) 134.4 ml/min; Potassium 3.6 mmol/L (3.5-5.1)
[2021-03-28 07:24] LABS: Ferritin 306.5 ng/ml (8-388); Phosphorus 2.3 mg/dl (2.5-4.9)
[2021-03-28] MEDS: predniSONE 5 MG TAB PO SCH (08:20)
[2021-03-28] MEDS: ENOXAPARIN INJ 40 MG/0.4 ML SYR SQ SCH ×2 (08:20→21:04)
[2021-03-28] MEDS: POTASSIUM CHLORIDE CRTAB 20 MEQ TABCR PO SCH (08:20)
[2021-03-28] MEDS: PANTOprazole 40 MG TAB PO SCH (08:20)
--- NOTE | 2021-03-28 08:45 | Pharmacy Report ---
Pharmacy Glycemic Short Note 2 - Date of Service March 28, 2021 - Glycemic Short BSG Results (Last 24 hours): 03/27/21 03/27/21 03/27/21 11:58 12:11 17:31 Glucose 147 H POC Glucose 145 H 148 H 03/27/21 03/27/21 03/28/21 20:53 23:57 03:47 Glucose POC Glucose 154 H 158 H 134 H 03/28/21 03/28/21 06:04 08:02 Glucose 156 H POC Glucose 171 H OUTPATIENT ANTIDIABETIC REGIMEN: * Tresiba 70 units SC daily * Humulin 70/30: 30 units SC at 0400 + 50 units SC at 2130 * Metformin 1000 mg PO BIDM * HbA1c = 13.3% (03/25/21) * On chcf steroids at home ASSESSMENT: 03/28 * BSGs well controlled over last 24 hrs since transition off insulin drip * 95 units SQ insulin given over last 24 hrs, while consuming some meals. Insulin needs appear to be much less than outpt regimen provided which is surprising given severe DKA presentation. Non-compliance? * Carb intake was not documented yesterday but Novolog used to cover meals * Fasting BSG 156-174 this AM w/ 70 units basal on board - plan to continue a similar dose for now and trend fasting BSGs * Post-prandial BSGs well controlled yesterday - continue same Novolog parameters 03/27 * Discontinued insulin drip this AM when patient started eating breakfast. So far, patient has tolerated transition to subcutaneous insulin well. * BSGs today: 121-145 mg/dL * Continue with Lantus scale and no changes to Novolog at this time. * Will add overnight checks for first night off the drip. 03/26 * 60 yo F admitted secondary to COVID-19 and found to be in DKA. Pharmacy has been consulted to assist with inpatient glycemic management. * Initial labs showed a severe acidosis with VBG pH 6.9, AG 27, CO2 4, beta-OH 106. Patient was started on an insulin drip. * This morning, patient was still in DKA but as of around noon, it appears the gap has closed as evidenced by: * AG 9, CO2 15 and VBG pH 7.31 * Adjusted goal range on the drip to be 110-180 mg/dL. Patient continues to rate at high insulin rates. Currently the drip is at 12.4 units/hr. * Do not feel comfortable stopping insulin drip at such high rates despite the gap closing. * Will start Lantus to hopefully help bring insulin drip rates down. Patient is still not eating so will be semi-conservative with basal dosing. PLAN FOR INPATIENT GLYCEMIC CONTROL: * Hold outpatient oral diabetes medications * Discontinued Insulin infusion * Basal insulin * Lantus 30-50 units SC BID (30 units if less than 140, 40 units if 140-200, 50 units if above 200) * Bolus insulin * Accu-checks ACHS * Goal range: 110-140 mg/dL * Correction Factor: 15 mg/dL/unit * Carb Ratio: 5 g CHO/unit PLAN FOR DISCHARGE: * Recommend patient f/u with Endocrinology service on discharge to further assess and adjust insulin regimen to attain glycemic goals
[2021-03-28] MEDS: INSULIN GLARGINE SOLOSTAR 100 UNITS/ML 3 ML PEN SC SCH ×2 (09:25→21:04)
[2021-03-28] MEDS: POT PHOSPHATE MONOBASIC W/ SOD TAB PO SCH ×4 (10:14→21:04)
[2021-03-29 06:23] LABS: Hematocrit (blood only) 36.7 % (37-47); Hemoglobin 12.9 g/dL (12.0-16.0); Mean Corpuscular Hemoglobin 28.7 pg (25-34); Mean Corpuscular Hgb Conc 35.1 g/dL (32-36); Mean Corpuscular Volume 81.7 fL (80-100); Mean Platelet Volume 9.2 fL (7.4-10.4); Platelet Count 184 K/uL (130-400); RDW Coefficient of Variation 12.8 % (11.5-14.5); RDW Standard Deviation 38.7 fL (36.4-46.3); Red Blood Count 4.49 M/uL (4.2-5.4); White Blood Count 3.78 K/uL (4.8-10.8)
[2021-03-29 07:02] LABS: BUN Creatinine Ratio 12.3 (10-20); Calcium 8.3 mg/dl (8.5-10.1); Creatinine Clr Calc Pharmacy 127.3 ml/min; Est GFR (African American) 123.6 ml/min; Est GFR (Non-African American) 106.6 ml/min; Potassium 3.2 mmol/L (3.5-5.1)
[2021-03-29 07:09] LABS: Phosphorus 3.5 mg/dl (2.5-4.9)
[2021-03-29] MEDS: POTASSIUM CHLORIDE CRTAB 20 MEQ TABCR PO SCH (08:58)
[2021-03-29] MEDS: PANTOprazole 40 MG TAB PO SCH (08:58)
[2021-03-29] MEDS: predniSONE 5 MG TAB PO SCH (08:58)
[2021-03-29] MEDS: POT PHOSPHATE MONOBASIC W/ SOD TAB PO SCH ×3 (08:58→18:10)
[2021-03-29] MEDS: INSULIN GLARGINE SOLOSTAR 100 UNITS/ML 3 ML PEN SC SCH (09:01)
[2021-03-29] MEDS: INSULIN ASPART PER UNIT SC SCH ×3 (09:03→18:08)
[2021-03-29] MEDS: ENOXAPARIN INJ 40 MG/0.4 ML SYR SQ SCH (09:04)
--- NOTE | 2021-03-29 10:06 | Hospitalist Progress Note ---
Date of Service March 28, 2021 Assessment & Plan (1) Diabetic ketoacidosis associated with type 2 diabetes mellitus: Plan: RESOLVED. Insulin drip d/c; over to SC basal-bolus regimen per pharmacy recommendations. Control has been quite good on SC regimen. Venous pH 6.87 on admission. s/p bicarbonate at presentation, followed by copious IV hydration + IV insulin. Admitted to ICU x 24 hours. DKA likely 2nd to otto COVID-19 infection in the setting of chronic, poorly-controlled T2DM. states she was "doing fine" before coming down with COVID. Appreciate pharmacy consult & recs. Will advise use of novolog with meals in place of 70/30. Cont levemir at discharge. (2) Uncontrolled type 2 diabetes mellitus with hyperglycemia, with long-term current use of insulin: Plan: HbA1C 13.3% With concurrent DKA at time of admission. DKA now resolved. Pharmacy glycemic team assistance much appreciated. BSG control excellent on SC regimen. Advance diet to T2DM regular diet. (3) Pneumonia due to COVID-19 virus: Plan: right-sided as seen on cxr. currently stable O2 sats in RA fortunately no clinical worsening to date cough only Low threshold for IV dexamethasone if any worsening of her pulmonary status. (4) director long term care (current) use of systemic steroids: Plan: Takes prednisone 5mg/day for psoriatic arthritis. If pneumonia worsens would advise changing to dexamethasone and giving 6mg/day for standard COVID treatment. (5) History of tobacco use: Plan: noted (6) Hypothermia: Plan: 2nd to severe DKA and severe dehydration. s/p warming blanket, correction of DKA, etc - hypothermia resolved. Procal negative. Blood cx's negative. NO evidence of any bacterial process. (7) Acute hyponatremia: Plan: resolved. (8) Acute metabolic encephalopathy: Plan: 2nd to DKA, COVID-19?, other factors? Supportive care. resolved. (9) Psoriatic arthritis: Plan: On chronic prednisone for such, 5mg/day. No active flare at this time. (10) GERD (gastroesophageal reflux disease): Plan: PPI (11) Hypertension: Plan: Cont to hold NICK resume on d/c (12) Hyperlipidemia: Plan: Not on meds for such at home (13) DVT prophylaxis: Plan: lovenox BID (14) Hypophosphatemia: Plan: start K-phos qid repeat level am 2nd DKA Plan: AST mildly elevated - likely due to COVID infection - resolved extensively updated by phone this evening cleared for home by PT/OT hopeful for d/c home tomorrow Admission and Anticipated Discharge Date Admission Date: March 25, 2021 Subjective pt w/o complaints during the visit staff report a good day mobility is good eating ok did have emesis this am - she attributed it to "eating a bad banana" - no emesis since coughing, but no sputum, no distress, no dyspnea BSGs have been quite good on SC insulin regimen Review of Systems Review of Systems: gen - no fevers, chills or significant weakness CV - no chest pain pulm - no dyspnea GI - no abd pain; nausea/emesis x 1 only over last 24 hours Physical Exam Physical Exam: gen - looks good today mouth - MMM ears - severe hearing impairment neck - no JVD heart - RRR, s1 s2, no murmur lungs - CTA b/l; no rales, no wheezing abd - soft NT ND BS+ ext - no edema, mild clubbing of fingernails, pulses 2+ b/l psych - a/o today Results & Data Results & Data ([facility]) Vital Signs (Past 12 Hours) Vital Signs Temp Pulse Resp BP Pulse Ox 03/29/21 07:58 37.1 C 75 16 123/66 95 03/28/21 22:25 37.2 C 93 H 16 120/72 96 Laboratory Results BMP wnl BSGs <200 PG Care Time/CCT Total # of Minutes Spent Total Time Spent with Patient: Total time spent is greater than 50% in coordination of care (as documented) at patient's floor/unit and/or counseling patient: Coding Level of Care Code 71969 Subseq Hosp Care Lvl 2 Diagnoses Diabetic ketoacidosis associated with type 2 diabetes mellitus E11.10 Uncontrolled type 2 diabetes mellitus with hyperglycemia, with long-term current use of insulin E11.65; Z79.4 Pneumonia due to COVID-19 virus U07.1; J12.82 senior care (current) use of systemic steroids Z79.52 History of tobacco use Z87.891 Hypothermia T68.XXXA Acute hyponatremia E87.1 Acute metabolic encephalopathy G93.41 Psoriatic arthritis L40.50 GERD (gastroesophageal reflux disease) K21.9 Hypertension I10 Hypertension type: essential hypertension Hyperlipidemia E78.2 Hyperlipidemia type: mixed hyperlipidemia DVT prophylaxis Z29.9 Hypophosphatemia E83.39 (1) Hypertension Hypertension type: essential hypertension Qualified Code(s): I10 - Essential (primary) hypertension (2) Hyperlipidemia Hyperlipidemia type: mixed hyperlipidemia Qualified Code(s): E78.2 - Mixed hyperlipidemia
--- NOTE | 2021-03-29 17:54 | Discharge Summary ---
Date of Service date of admission - March 25, 2021 date of discharge - March 29, 2021 Admission HPI Per Admitting Provider Maura Pickard is a 60-year-old female who presents to the ER with shortness of breath, chills, nausea and vomiting starting 4 days ago. She has a significant history of poorly controlled diabetes with HbA1c 12.8 in September this year. She reports compliance with her medications. She is unvaccinated for COVID-19 and tested positive for this 1 week ago. In the ER she was noted to be in diabetic ketoacidosis with a venous pH of 6.87, sodium 119, anion gap 27, POLO with creatinine 1.22 from baseline of 0.63, SARS-CoV-2 PCR positive, chest x-ray concerning for right lung airspace opacities suggestive of viral pneumonia. She was given 3 L Normosol bolus and started on DKA protocol insulin IV drip. Sodium bicarbonate 100 mEq IV given due to pH < 6.9. She is referred to medicine for admission ongoing management of diabetic ketoacidosis. Principal Diagnosis DKA in the setting of COVID-19 infection Discharge Exam gen - NAD mouth - MMM ears - severe hearing impairment neck - no JVD heart - RRR, s1 s2, no murmur lungs - CTA b/l; no rales, no wheezing abd - soft NT ND BS+ ext - no edema, mild clubbing of fingernails, pulses 2+ b/l psych - a/o x 3 Discharge Data Allergies Allergy/AdvReac Type Severity Reaction Status Date / Time Vagisil Yeast-Control SUPP Allergy Mild Redness of Uncoded 03/25/21 12:10 Skin Consultations Emergency Department Aide Pharmacy Glycemic Team Fish Bailer PT, OT Ordered Studies Abdomen/Pelvis CT 03/25/21 11:45 CT abd pelvis wo con CLINICAL HISTORY: n/v TECHNIQUE: Helical axial images of the abdomen and pelvis were obtained. Automated dose lowering techniques and/or adjustment according to patient size were utilized for this exam. This exam was performed without intravenous contrast. COMPARISON: Comparison is made to CT abdomen pelvis 11/09/2020 FINDINGS: Lower chest: Multifocal consolidation is seen in the right lower lobe. Liver: Unremarkable. No focal lesions are seen. Gallbladder and biliary tree: Patient is status post cholecystectomy. No intra- or extrahepatic biliary ductal dilation. Pancreas: Unremarkable, no focal lesions. Spleen: Unremarkable. Adrenals: Unremarkable. Kidneys and ureters: 2.5 cm cyst is seen in the left kidney. Bladder: Jones catheter is seen. Reproductive organs: Unremarkable. Bowel: Unremarkable appearance of the bowel. The appendix is normal. Lymph nodes Retroperitoneal: Unremarkable. Mesenteric: Unremarkable. Pelvic: Unremarkable. Peritoneum: Normal Vessels: Unremarkable. Abdominal wall: Unremarkable. Bones: Unremarkable. IMPRESSION: No acute abnormalities and in particular there is no evidence of bowel obstruc tion. ACT 112: Negative or not required by law. Electronically signed by: Ti Matos M.D. 03/25/2021 2:06 PM Chest X-Ray 03/25/21 11:45 XR chest 1V portable HISTORY: 60 years-old Female Chest Pain acute atypical chest pain COMPARISON: CT abdomen and pelvis of same day, chest radiograph 08/09/2018 TECHNIQUE: Portable upright AP view of the chest FINDINGS: The cardiomediastinal and hilar silhouettes are within normal limits. Mild ill- defined airspace opacities of the right midlung and right lung base. No pneumothorax, pleural effusion, airspace consolidation or overt pulmonary edema. No acute fracture. Battery pack of the left chest wall. IMPRESSION: Airspace opacities of the right lung are suggestive of viral pneumonia. ACT 112: Negative or not required by law. The above report was generated using voice recognition software. It may contain grammatical, syntax or spelling errors. Electronically signed by: Russell Cardona M.D. 03/25/2021 2:16 PM Diabetes Follow up Diabetes Follow-up Needed for HgbA1c >9% Hospital Course (1) Diabetic ketoacidosis associated with type 2 diabetes mellitus: Patient had severe DKA requiring admission to the ICU for initial pH <7 (initial pH 6.87). Treated in customary fashion with IV insulin, copious IV fluids, and electrolyte replacement. She did receive IV bicarbonate as well given the severe metabolic acidosis. DKA likely 2nd to otto COVID-19 infection in the setting of chronic, poorly-controlled T2DM. After about 24 hours in the ICU she was transitioned to the floor in the COVID unit. She ultimately was able to resume a SC insulin regimen. Her control was excellent on SC basal-bolus. Mentation improved as her DKA resolved. At discharge she will resume the following regimen - * levemir 70 units daily * metformin 1000mg BID * humulin 70/30 - * 20 units every morning * 30 units every evening She follows with the [facility] Endocr[facility]ology clinic and they gave guidance at time of discharge regarding her insulin regimen. She will need to f/u with the endo clinic soon after discharge given her severely uncontrolled diabetes at baseline. (2) Uncontrolled type 2 diabetes mellitus with hyperglycemia, with long-term current use of insulin: HbA1C 13.3% With concurrent DKA at time of admission. DKA resolved with measures as listed in #1 above. Pharmacy glycemic team provided significant assistance with her inpatient diabetes care. (3) Pneumonia due to COVID-19 virus: right-sided as seen on cxr. Was stable in room air the entire stay. fortunately no clinical worsening of the pneumonia during the visit. she did not require IV dexamethasone or Remdesivir while here. (4) intermediate (current) use of systemic steroids: Takes prednisone 5mg/day for psoriatic arthritis. She did not need stress dose steroids while hospitalized. (5) History of tobacco use: (6) Hypothermia: 2nd to severe DKA and severe dehydration. s/p warming blanket, correction of DKA, etc with resolution of hypothermia. Procalcitonin was negative. Blood cx's were negative. She never had evidence of any bacterial process. (7) Acute hyponatremia: resolved. (8) Acute metabolic encephalopathy: 2nd to DKA, COVID-19 infection, potentially other factors. resolved. mental status at baseline at time of discharge. (9) Psoriatic arthritis: On chronic prednisone for such, 5mg/day. No active flare at this time. (10) GERD (gastroesophageal reflux disease): PPI (11) Hypertension: Continue low-dose lisinopril 2.5mg daily. (12) Hyperlipidemia: Not on meds for such at home (13) DVT prophylaxis: lovenox BID while hospitalized (14) Hypophosphatemia: required IV/PO replacement with normalization of the phos level at discharge (15) Hypokalemia: replaced IV/PO while here. will complete a short course of oral supplementation after discharge. seen by PT/OT - cleared for home with Total Time Total Time Spent Total Time Spent (In Minutes): 50 Discharge Plan Discharge Items Patient Disposition: Home - Self-Care Reason For Visit: COVID-19 infection; Diabetic Ketoacidosis Discharge Diagnosis: 1. COVID-19 infection with very mild pneumonia - stable, doing well, oxygen levels normal 2. Diabetic ketoacidosis - resolved; this was due to the stress of your COVID illness 3. uncontrolled diabetes Activity: As commented below Activity Comment: gradually increase your activities over the next 7-10 days Sexual Activity: Wait until after follow-up appointment Exercise/Sports: Wait until after follow-up appointment Non-emergency contact: Primary Care Provider and Specialist Call non-emergency contact if: you have any medication questions, your symptoms worsen and you have a fever Follow-up/Referrals: Willis Amador MD [Physician] - (Dr Amador will contact you later this week to check on the status of your diabetes ) Car Fox MD [Primary Care Provider] - 04/01/21 10:30 am (Telehealth appointment with Tia.Sign on to portal 5 minutes prior to appointment.Thanks) Diet: Carb Consistent or DM2 Addtl Attending Provider Instructions: Mrs Pickard, You were admitted to the hospital for diabetic ketoacidosis (also known as "DKA"). This is a condition in which your blood sugars go very high, which then leads to the body's internal "pH" being thrown off. When the body's pH is abnormal an individual becomes very sick. Symptoms include vomiting, nausea, lethargy/sleepiness, confusion, abdominal pain, loss of appetite, etc. Please see "diabetic ketoacidosis" handout for more information. Your DKA was caused by COVID-19 infection. You needed to be hospitalized in the ICU because of the severity of your DKA and your COVID-19. You received IV fluids, IV insulin, and other treatments to resolve the DKA. After the ICU stay you were transferred to the medical floor where we made adjustments to your insulin regimen. You have improved nicely while here. Fortunately your COVID-19 pneumonia is very mild at this time and your oxygen levels are normal. Your cough is from the pneumonia. Recommendations - 1. continue your long-acting levemir insulin 70 units once daily every morning. Start this tomorrow morning. 2. 70/30 insulin - previously you were taking the 70/30 insulin based on your work schedule. Your previous regimen was 30 units of 70/30 at about 7-730am, and 50 units in the evening (about 10-1030pm). You will be off work for some time as you recover from your COVID illness. Thus, since you will be off work, I would recommend that you take your 70/30 insulin as follows - 20 units every morning, about 30 minutes prior to breakfast (7-8am or thereabouts) 30 units every evening, about 30 minutes prior to the dinner meal (5-6pm or so) NOTE THE CHANGE IN THE AMOUNT OF INSULIN. THIS IS SUBJECT TO CHANGE BASED ON FURTHER RECOMMENDATIONS FROM DR AMADOR. Start your 70/30 regimen back tomorrow morning, 03/30/21. When you return to work in the future you can resume your 70/30 as you were doing in the past BUT for now please follow the instructions above. As you transition home please check your blood sugars before breakfast, before lunch, before dinner, and at bedtime. Dr Amador plans to connect with you in the next few days by phone to check on your progress. 3. take potassium supplement x 3 days; you can start this tomorrow. I sent this to the pharmacy for you. 4. your diarrhea is likely from your COVID illness. It should resolve in the next 4-5 days. You can take [id number] Imodium if desired for the diarrhe a. If the diarrhea persists or worsens please let your family doctor know. 5. resume your metformin 1000mg twice daily as previous. 6. for your cough you can take [id number] mucinex up to 1200mg twice daily as desired. 7. There is a small chance that your COVID illness could potentially get worse over the next week. Our hope of course is that it does not! If you have worsening shortness of breath, recurrent fevers over 100 degrees, vomiting, chest pain, abdominal pain, or any other concerns please seek medical attention. 8. You are likely still contagious to others from your COVID infection. Please plan to isolate at home for the next 4-5 days. Do not allow outside visitors to your home during this time period. If you continue to feel well, you are having no fever, etc you can come out of isolation next Sunday (you can leave your home then, go to the store, etc). 9. Focus on good hydration over the next few days as you recover. Get good sleep as well each day. Follow-up - see separate section Return to [facility] if - * you have fevers over 100 degrees * you have worsening shortness of breath * you have chest pains * you have uncontrolled vomiting * your diarrhea worsens * your blood sugars are consistently high (greater than 300) * any other concerns Continue to feel better! Dr Cline Pending Studies at Discharge: No Stand-Alone Forms: My [facility], Smoking Cessation Medications and DC Order Prescriptions: New ondansetron 4 mg tablet,disintegrating 4 mg PO Q6H PRN (Reason: nausea and vomiting) Qty: 10 RF: 0 Continued metformin 500 mg tablet extended release 24 hr 1,000 mg PO BID 90 Days Qty: 360 RF: 0 omeprazole 40 mg capsule,delayed release(DR/EC) 40 mg PO DAILY Qty: 90 RF: 3 lisinopril 2.5 mg tablet 2.5 mg PO DAILY Qty: 90 RF: 1 (DME) OneTouch Verio test strips Strip See Rx Instructions .ROUTE .MEDSUPPLY Qty: 400 RF: 1 prednisone 5 mg tablet 5 mg PO DAILY RF: 0 (DME) FreeStyle Jada 14 Day Sensor Kit See Rx Instructions .ROUTE .MEDSUPPLY Qty: 1 RF: 0 (DME) FreeStyle Jada 14 Day [place] Misc See Rx Instructions .ROUTE .MEDSUPPLY Qty: 1 RF: 0 cholecalciferol (vitamin D3) 50 mcg (2,000 unit) capsule 50 mcg PO DAILY Qty: 30 RF: 0 (DME) pen needle, diabetic [BD Ultra-Fine Elly Pen Needle] 32 gauge x 5/32" needle See Rx Instructions .ROUTE .MEDSUPPLY RF: 0 Changed Levemir FlexTouch U-100 Insuln 100 unit/mL (3 mL) insulin pen 70 unit subcut QAM 30 Days Qty: 30 RF: 11 Humulin 70/30 U-100 KwikPen 100 unit/mL (70-30) insulin pen See Rx Instructions subcut .COMPLEX Qty: 2 RF: 2 Discontinued insulin aspart U-100 [Novolog Flexpen U-100 Insulin] 100 unit/mL (3 mL) insulin pen See Rx Instructions subcut BID Qty: 3 RF: 4 Hold Instructions: Temp using of 70/30 No Action (DME) Ketostix Strip See Rx Instructions miscellaneous .MEDSUPPLY Qty: 50 RF: 5 Discharge Orders: Discharge Order (Routine); Ordered 03/29/21 Ordered By: Harinder Bryant/Other Patient Handouts: Disinfecting Your Home of COVID-19, 2019-nCoV, COVID-19 Home Care, COVID-19 and the Flu What's ..., Managing Type 2 Diabetes, Diabetes: Sick-Day Plan, Diabetic Ketoacidosis Admission Data Admit Date/Time: 03/25/21 14:33 Attending Provider: Harinder Cline Admit Provider: Harinder Hunter Primary Care Provider: Car Fox Other Providers: Harinder Hunter ; Eliud Francois Other Interventions: Discharge Summary Assessment (RN) Last Done: 03/29/21 17:09 Coding Level of Care Code D/C DAY MANAGEMENT >30 MINS Diagnoses Diabetic ketoacidosis associated with type 2 diabetes mellitus E11.10 Uncontrolled type 2 diabetes mellitus with hyperglycemia, with long-term current use of insulin E11.65; Z79.4 Pneumonia due to COVID-19 virus U07.1; J12.82 intermediate (current) use of systemic steroids Z79.52 History of tobacco use Z87.891 Hypothermia T68.XXXA Acute hyponatremia E87.1 Acute metabolic encephalopathy G93.41 Psoriatic arthritis L40.50 GERD (gastroesophageal reflux disease) K21.9 Hypertension I10 Hypertension type: essential hypertension Hyperlipidemia E78.2 Hyperlipidemia type: mixed hyperlipidemia DVT prophylaxis Z29.9 Hypophosphatemia E83.39 Hypokalemia E87.6
== END 2021-03-29 18:58 | disposition home or self-care (01) | DRG 637 ==
LOC: ED 11:13 → 1E 14:33 → SUATTDRO 14:33 → 1E 15:10 → 3W 03-26 13:04
DX: U07.1 COVID-19; R68.0 Hypothermia, not associated with low environmental temperature; H91.90 Unspecified hearing loss, unspecified ear; E83.39 Other disorders of phosphorus metabolism; L40.50 Arthropathic psoriasis, unspecified; Z87.891 Personal history of nicotine dependence; E11.10 Type 2 diabetes mellitus with ketoacidosis without coma; I10 Essential (primary) hypertension; Z79.899 Other long term (current) drug therapy; Z83.3 Family history of diabetes mellitus; E78.5 Hyperlipidemia, unspecified; K21.9 Gastro-esophageal reflux disease without esophagitis; E87.1 Hypo-osmolality and hyponatremia; Z79.4 Long term (current) use of insulin; N17.9 Acute kidney failure, unspecified; Z88.3 Allergy status to other anti-infective agents; E87.6 Hypokalemia; Z79.52 Long term (current) use of systemic steroids; G93.41 Metabolic encephalopathy; Z79.84 Long term (current) use of oral hypoglycemic drugs; E11.65 Type 2 diabetes mellitus with hyperglycemia; J12.82 Pneumonia due to coronavirus disease 2019